=== PATIENT | female | born 1975 | race Caucasian/White ===

== ENCOUNTER 2017-02-13 22:40 | Emergency (ER) | payer MEDICAID ==
[2017-02-13] MEDS ORDERED: Sucralfate 1 GM Tab ONE (23:08)
[2017-02-13] MEDS ORDERED: Sucralfate 1 GM Tab PO ONE (23:13)
[2017-02-13 23:36] VITALS: BP 127/79
--- NOTE | 2017-02-16 09:24 | ER ---
DATE SEEN: 02/13/2017 CHIEF COMPLAINT: Epigastric abdominal discomfort. HISTORY OF PRESENT ILLNESS: For the past several days, she has had increasing midepigastric abdominal discomfort. She has a history of asthma, no longer taking prednisone. She feels mild reflux. No history of ulcer disease. She felt clammy today. Has no medication change. No fever, no chills. No shortness of breath or cough. No chest pain or irregular heartbeat, back pain, arm pain, jaw pain, neck pain, flank pain, frequency, urgency, dysuria, diarrhea, constipation, blood in the stool, black tarry stools, or muscle aches or joint aches or pains. MEDICATIONS: Significant for: 1. Prednisone, no longer taking. 2. Omeprazole 40 mg at bedtime. 3. Mometasone/formoterol (Dulera) 200/5 mcg. 4. Fluoxetine for depression. 5. Prozac 20 mg b.i.d. 6. Albuterol/ipratropium-DuoNeb p.r.n. 7. Albuterol inhaler HFA 2 puffs p.r.n. OTHER DIAGNOSES: 1. Asthma. 2. GERD. 3. Overweight. ALLERGIES: Keflex, topiramate. SOCIAL HISTORY: The patient is a smoker, less than a pack a day. OTHER INFORMATION: She has multiple visits for which she has been seen here - in 2016 nine times, but only two times this year. Most of the time ED visits were for shortness of breath, chest discomfort, chest congestion, or acid reflux. At most recent visit, she had shortness of breath in June 2016. FAMILY HISTORY: Her of lung cancer in 2005. REVIEW OF SYSTEMS: Otherwise negative, except as noted above. She has issues regarding depression. PHYSICAL EXAMINATION: VITAL SIGNS: Not yet on the chart. CONSTITUTIONAL: Alert woman who is in mild distress. PERRLA intact. Pharynx without abnormality. NECK: Supple. She is slightly overweight. NECK: Without thyromegaly or masses. No bruits. LUNGS: Clear without rales, rhonchi, or wheezes. HEART: S1, S2. No murmur. Regular rate and rhythm. No S3, no S4. ABDOMEN: Soft. No guarding. No abdominal discomfort, except for mild midepigastric discomfort. Bowel sounds present. No distention. No heel tap rebound. No rebound. No guarding. EXTREMITIES: Without edema. Deep tendon reflexes normal in upper and lower extremities, slightly hypoactive. ASSESSMENT: Probable acid reflux. PLAN: Treat with Carafate one gm q.i.d. Follow up with doctor in a week. Sixty tablets prescribed. She was dispensed with her Carafate this evening. DIAGNOSES: 1. Acid reflux. 2. Gastritis. 3. Esophagitis, no previous history of EGD. 4. Overweight. 5. Anxiety. 6. Asthma. 7. Depression. /[id number] RUEL/JOSE ALFREDO
== END 2017-02-13 23:15 | disposition home or self-care (01) ==
LOC: FB.ED 22:40
DX: K21.0 Gastro-esophageal reflux disease with esophagitis (principal); K29.70 Gastritis, unspecified, without bleeding; E66.3 Overweight; F41.9 Anxiety disorder, unspecified; F32.9 Major depressive disorder, single episode, unspecified; J45.909 Unspecified asthma, uncomplicated; Z88.1 Allergy status to other antibiotic agents
CPT/HCPCS: 99283; A9270

== ENCOUNTER → 2017-03-31 | Day surgery (SDC) | payer MEDICAID ==
[~2017-03-31] MED LIST: Propofol 200 MG/20 ML SDV IV ONE; Sodium Chloride 0.9% 10 ML Syringe FLUSH PRN
[2017-03-31 12:34] VITALS: BP 128/83
--- NOTE | 2017-04-01 07:43 | OR ---
DATE OF OPERATION: 03/31/2017 SURGEON: Tj Scott MD PREOPERATIVE DIAGNOSIS: Cataract of left eye. POSTOPERATIVE DIAGNOSIS: Cataract of left eye. OPERATION PERFORMED: Phacoemulsification of cataract of left eye with placement of an Duggan, model ZCB00, 22.0 diopter, foldable, posterior chamber intraocular lens. MARINE OILER: None. DESCRIPTION OF PROCEDURE: Peribulbar anesthetic was performed using a mixture of 2% lidocaine with Wydase. The patient was prepped and draped in the usual fashion. A 3 mm fornix based conjunctival flap was performed at the 10 o'clock position. Hemostasis was obtained using diathermy, and a 2.8 mm grooved near clear corneal incision was then made. A stab incision was made into the anterior chamber at the 12 o'clock position and a second stab wound incision was made underlying the grooved near clear corneal incision. Viscoat was instilled into the anterior chamber, and a continuous tear capsulotomy was performed. Hydrodissection was accomplished with balanced salt solution, and the nucleus was removed in a divide and conquer fashion. The remaining cortical material was removed with the irrigation and aspiration unit. Viscoat was instilled into the anterior chamber, and an KRISTY, model ZCB00, 22.0 diopter, foldable, posterior chamber intraocular lens was placed into the capsular bag, the haptics being positioned at the 1 and 7 o'clock positions. The residual Viscoat was removed from the anterior chamber and the anterior chamber reformed with balanced salt solution. The wound was checked and noted to be watertight. The conjunctiva was secured in its original position with diathermy. Alphagan and Maxitrol Ointment were then placed into the patient's eye. The patient tolerated the procedure well and it was without complication. Elapsed phacoemulsification time was 4.4 seconds. Postoperative instructions as related to activities, as well as medications, were reviewed with the patient. The patient was instructed to return to see me on the day following surgery for the first postoperative check. The patient was also instructed to contact me prior to that time if the patient were to have any problems. /[id number] DEG/MODL CC: ANILA MOLINA FNP MTDD
== END ==
LOC: FB.SDS 08:18
PROVIDERS: ATTEND Ophthalmology
DX: H26.9 Unspecified cataract (principal); R09.81 Nasal congestion; F17.210 Nicotine dependence, cigarettes, uncomplicated; J45.909 Unspecified asthma, uncomplicated; F33.0 Major depressive disorder, recurrent, mild; G47.61 Periodic limb movement disorder; F41.1 Generalized anxiety disorder; E05.00 Thyrotoxicosis with diffuse goiter without thyrotoxic crisis or storm; Z79.899 Other long term (current) drug therapy; Z79.51 Long term (current) use of inhaled steroids; Z88.1 Allergy status to other antibiotic agents; Z88.8 Allergy status to other drugs, medicaments and biological substances; Z98.890 Other specified postprocedural states
CPT/HCPCS: 66984; 81025; C1780; J2704; J7050

== ENCOUNTER 2017-06-02 08:44 | Day surgery (SDC) | payer MEDICAID ==
[2017-06-02] MEDS ORDERED: Sodium Chloride 0.9% 10 ML Syringe FLUSH PRN (11:30)
[2017-06-02] MEDS ORDERED: Propofol 200 MG/20 ML SDV IV ONE (11:30)
[2017-06-02 12:32] VITALS: BP 135/83
--- NOTE | 2017-06-03 10:18 | OR ---
DATE OF OPERATION: 06/02/2017 SURGEON: Tj Scott MD PREOPERATIVE DIAGNOSIS: Cataract right eye. POSTOPERATIVE DIAGNOSIS: Cataract right eye. OPERATION PERFORMED: Phacoemulsification of cataract right eye with placement of an Duggan, model ZCB00, 22.5 diopter, foldable, posterior chamber intraocular lens. NEMATOLOGIST: None. DESCRIPTION OF PROCEDURE: Peribulbar anesthetic was performed using a mixture of 2% lidocaine with Wydase. The patient was prepped and draped in the usual fashion. A 3 mm fornix based conjunctival flap was performed at the 10 o'clock position. Hemostasis was obtained using diathermy, and a 2.8 mm grooved near clear corneal incision was then made. A stab incision was made into the anterior chamber at the 12 o'clock position and a second stab wound incision was made underlying the grooved near clear corneal incision. Viscoat was instilled into the anterior chamber, and a continuous tear capsulotomy was performed. Hydrodissection was accomplished with balanced salt solution, and the nucleus was removed in a divide and conquer fashion. The remaining cortical material was removed with the irrigation and aspiration unit. Viscoat was instilled into the anterior chamber, and an Duggan, model ZCB00, 22.5 diopter, foldable, posterior chamber intraocular lens was placed into the capsular bag, the haptics being positioned at the 1 and 7 o'clock positions. The residual Viscoat was removed from the anterior chamber and the anterior chamber reformed with Miochol. The wound was checked and noted to be watertight. The conjunctiva was secured in its original position with diathermy. Alphagan and Maxitrol Ointment were then placed into the patient's eye. The patient tolerated the procedure well and it was without complication. Elapsed phacoemulsification time was 1.3 seconds. Postoperative instructions as related to activities as well as medications were reviewed with the patient. The patient was instructed to return to see me on the day following surgery for the first postoperative check. The patient was also instructed to contact me prior to that time if she were to have any problems. ADDENDUM: Because of minor patient discomfort, 0.2 mL of a mixture of lidocaine, phenylephrine, and balanced salt solution were instilled into the anterior chamber. This diminished the discomfort throughout the course of the surgery. /[id number] DEG/MODL CC: ANILA Asencio RNC, ANP
== END 2017-06-02 12:55 | disposition home or self-care (01) ==
LOC: FB.SDS 08:44
PROVIDERS: ATTEND Ophthalmology
DX: H26.9 Unspecified cataract (principal); J45.909 Unspecified asthma, uncomplicated; J32.9 Chronic sinusitis, unspecified; F33.9 Major depressive disorder, recurrent, unspecified; F41.9 Anxiety disorder, unspecified; F17.210 Nicotine dependence, cigarettes, uncomplicated; Z79.51 Long term (current) use of inhaled steroids; Z79.899 Other long term (current) drug therapy; Z88.1 Allergy status to other antibiotic agents; Z88.8 Allergy status to other drugs, medicaments and biological substances; Z91.048 Other nonmedicinal substance allergy status; Z98.42 Cataract extraction status, left eye
CPT/HCPCS: 81025; C1780; J2704; J7050

== ENCOUNTER 2018-05-09 22:41 | Inpatient (IN) | payer MEDICAID ==
[2018-05-09] MEDS ORDERED: Albuterol/Ipratropium 3.0-0.5 MG/3 ML Neb Soln NEB ONE (22:49)
[2018-05-09] MEDS ORDERED: methylPREDNISolone Sodium Succinate 125 MG/2 ML SDV IVPUSH ONE (22:49)
--- NOTE | 2018-05-09 22:56 | EDM.PDOC ---
ED HPI GENERAL MEDICAL PROBLEM - General Stated Complaint: DIFFICULTY BREATHING Time Seen by Provider: 05/09/18 22:41 Source of Information: Reports: Patient, EMS History Limitations: Reports: Respiratory Distress - History of Present Illness INITIAL COMMENTS - FREE TEXT/NARRATIVE: 43 y.o w f -smoker- came to the ED by EMS due to SOB at home. Pt was seen yesterday by for Astmo exacerbation. She received a duo neb and prednison, improved and was d/c'd with instructions. This PM she called 911 because of SOB. BP 108/57 RR 22 Pulse ox 88% on RA Pulse 127 Temp 37.2 Onset Date: 05/07/18 Onset Time: 19:00 Duration: Getting Worse, Intermittent Location: Reports: Chest Severity: Moderate Improves with: Reports: Medication Worsens with: Reports: Movement Context: Reports: Sick Contact, Other (COPD) Associated Symptoms: Reports: Cough, Shortness of Breath Treatments CUFFER: Reports: Other Medication(s) (albuterol nebs) - Related Data Allergies Allergy/AdvReac Type Severity Reaction Status Date / Time cephalexin monohydrate Allergy Rash Verified 05/08/18 18:10 [From Keflex] pramipexole Allergy Itching Verified 05/08/18 18:10 topiramate [From Topamax] Allergy Rash Verified 05/08/18 18:10 Home Meds: Home Meds FLUoxetine [PROzac] 20 mg PO BID 09/16/15 [History] Albuterol Sulfate [Proventil Hfa] 2 puff IH Q4H 03/30/17 [History] Gabapentin [Neurontin] 300 mg PO BEDTIME 03/30/17 [History] Mometasone/Formoterol [Dulera 200-5 MCG] 2 puff IH BID 03/30/17 [History] Ipratropium/Albuterol Sulfate [Iprat-Albut 0.5-3(2.5) mg/3 ml] 3 ml IH QID PRN 04/17/17 [History] Gabapentin [Neurontin] 300 mg PO PCDINNER 06/01/17 [History] predniSONE 20 mg PO DAILY #4 tab 05/08/18 [Rx] Past Medical History - Past Health History Medical/Surgical History: Denies Medical/Surgical History HEENT History: Reports: Cataract, Impaired Vision, Sinusitis Cardiovascular History: Reports: None Respiratory History: Reports: Asthma, Bronchitis, Recurrent, Pneumonia, Recurrent, SOB Gastrointestinal History: Reports: GERD Genitourinary History: Reports: UTI, Recurrent 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 HAS HAD SOME BLOOD WORK DONE FOR THIS. Hematologic History: Reports: None Immunologic History: Reports: None Oncologic (Cancer) History: Reports: None Dermatologic History: Reports: Other (See Below) Other Dermatologic History: HAS GOT RASHES FROM SOME MEDS IN THE PAST. - Infectious Disease History Infectious Disease History: Reports: Chicken Pox, Shingles - Past Surgical History Head Surgeries/Procedures: Reports: None Social & Family History - Family History Family Medical History: Noncontributory Cardiac: Reports: Stent Respiratory: Reports: Asthma Musculoskeletal: Reports: Other (See Below) Other Musculoskeletal Family History: multiple sclerosis Endocrine/Metabolic: Reports: Diabetes, Type I Oncologic: Reports: Pancreatic - Caffeine Use Caffeine Use: Reports: Coffee Other Caffeine Use: 4 CANS A DAY. ED ROS GENERAL - Review of Systems Review Of Systems: See Below Constitutional: Reports: No Symptoms HEENT: Reports: No Symptoms Respiratory: Reports: Shortness of Breath, Wheezing, Cough Cardiovascular: Reports: No Symptoms Endocrine: Reports: No Symptoms GI/Abdominal: Reports: No Symptoms : Reports: No Symptoms Musculoskeletal: Reports: No Symptoms Skin: Reports: No Symptoms Neurological: Reports: No Symptoms Psychiatric: Reports: No Symptoms Hematologic/Lymphatic: Reports: No Symptoms Immunologic: Reports: No Symptoms ED EXAM, GENERAL - Physical Exam Exam: See Below Exam Limited By: Respiratory Distress General Appearance: Alert, WD/WN, Moderate Distress Eye Exam: Bilateral Eye: Normal Inspection Ears: Normal External Exam Ear Exam: Bilateral Ear: Auricle Normal Nose: Normal Inspection, Normal Mucosa, No Blood Throat/Mouth: Normal Inspection, Normal Lips, Normal Voice, No Airway Compromise Head: Atraumatic, Normocephalic Neck: Normal Inspection, Supple, Non-Tender, Full Range of Motion Respiratory/Chest: Respiratory Distress, Decreased Breath Sounds, Rhonchi, Wheezing Cardiovascular: No Edema, Tachycardia Peripheral Pulses: 2+: Radial (L) GI/Abdominal: Normal Bowel Sounds, Soft, Non-Tender, No Organomegaly, No Abnormal Bruit, No Mass, Pelvis Stable (Female) Exam: Deferred Rectal (Female) Exam: Deferred Back Exam: Normal Inspection, Full Range of Motion Extremities: Normal Inspection, Normal Range of Motion, Non-Tender, No Pedal Edema, Normal Capillary Refill Neurological: Alert, Oriented, CN II-XII Intact, Normal Cognition, No Motor/ Sensory Deficits Psychiatric: Normal Affect, Normal Mood Skin Exam: Warm, Dry, Intact, Normal Color, No Rash Lymphatic: No Adenopathy EKG INTERPRETATION EKG Date: 05/10/18 Time: 00:45 Rhythm: NSR Rate (Beats/Min): 114 (after a duo neb) Archer: Normal P-Wave: Present QRS: Normal ST-T: Normal QT: Normal Comparison: NA - No Prior EKG Course - Vital Signs Text/Narrative:: 43 y.o w f -smoker- came to the ED by EMS due to SOB at home. Pt was seen yesterday by for Astmo exacerbation. She received a duo neb and prednison, improved and was d/c'd with instructions. This PM she called 911 because of SOB. BP 108/57 RR 22 Pulse ox 88% on RA Pulse 127 Temp 37.2 PE: WN WD W F in resp distress Imaging: Infiltrate Left upper lobe, left lower lobe, official report is pending. Labs: WBC 18k reminder of CBC nl Na 132 GFR > 60 Lactic acid 1.4 BUN 8 Cr 1.0 Troponin 0.017 Impression: Asthma exacerbation, Infiltrate ITZ of lung DDx Mass/CA vs Pneumonia Tx: Duo Neb, SoluMedrol, Levoquin Reexam: Somewhat improved Plan: Admit to m/s inpatient tele Last Recorded V/S: Last Vital Signs Temp 36.5 C 05/10/18 04:20 Pulse 96 05/10/18 08:40 Resp 22 H 05/10/18 04:20 BP 122/76 05/10/18 04:20 Pulse Ox 91 L 05/10/18 08:37 - Orders/Labs/Meds Orders: Active Orders 24 hr Category Date Time Status Chest 2V [CR] Stat Exams 05/09/18 22:49 Taken Blood Culture x2 Reflex Set [OM.PC] Urgent Oth 05/09/18 23:55 Ordered EKG 12 Lead [EK] Routine Ther 05/09/18 22:50 Ordered Medication Orders Acetaminophen (Tylenol) 650 mg PO Q4H PRN PRN Reason: Pain (Mild 1-3)/fever Albuterol (Proventil Neb Soln) 2.5 mg NEB Q2H PRN PRN Reason: Shortness Of Breath/wheezing Last Admin: 05/10/18 08:37 Dose: 2.5 mg Admin: 05/10/18 06:05 Dose: 2.5 mg Admin: 05/10/18 03:03 Dose: 2.5 mg Azithromycin (Zithromax) 250 mg PO DAILY [facility] Ampicillin Sodium/Sulbactam (Sodium 1.5 gm/ Sodium Chloride) 50 mls @ 150 mls/ hr IV Q6H JOHN Methylprednisolone Sodium Succinate (Solu-Medrol) 125 mg IVPUSH Q8H JOHN Last Admin: 05/10/18 06:05 Dose: 125 mg Ondansetron HCl (Zofran Odt) 4 mg PO Q4H PRN PRN Reason: nausea, able to take PO Sodium Chloride (Saline Flush) 10 ml FLUSH ASDIRECTED PRN PRN Reason: Keep Vein Open Last Admin: 05/10/18 06:05 Dose: 10 ml Labs: Laboratory Tests 05/09/18 05/09/18 05/09/18 Range/Units 23:06 23:06 23:06 WBC 18.1 H (4.5-12.0) X10-3/uL RBC 5.20 (3.23-5.20) x10(6)uL Hgb 15.5 (11.5-15.5) g/dL Hct 46.3 (30.0-51.3) % MCV 88.9 (80-96) fL MCH 29.8 (27.7-33.6) pg MCHC 33.6 (32.2-35.4) g/dL RDW 12.6 (11.5-15.5) % Plt Count 327 (125-369) X10(3)uL MPV 7.5 (7.4-10.4) fL Add Manual Diff Yes Neutrophils % (Manual) 80 (46-82) % Band Neutrophils % 5 (0-6) % Lymphocytes % (Manual) 10 L (13-37) % Monocytes % (Manual) 5 (4-12) % Sodium 132 L (135-145) mmol/L Potassium 3.7 (3.5-5.3) mmol/L Chloride 96 L D (100-110) mmol/L Carbon Dioxide 24 (21-32) mmol/L BUN 8 (7-18) mg/dL Creatinine 1.0 (0.55-1.02) mg/dL Est Cr Clr Drug Dosing TNP Estimated GFR (MDRD) > 60 (>60) BUN/Creatinine Ratio 8.0 L (9-20) Glucose 127 H (80-116) mg/dL Lactic Acid 1.4 (0.4-2.2) mmol/L Calcium 9.0 (8.6-10.2) mg/dL Troponin I (<0.017-0.056) ng/mL Urine Color (YELLOW) Urine Appearance (CLEAR) Urine pH (5.0-6.5) Ur Specific Tucker (1.010-1.025) Urine Protein (NEGATIVE) mg/dL Urine Glucose (UA) (NEGATIVE) mg/dL Urine Ketones (NEGATIVE) mg/dL Urine Occult Blood (NEGATIVE) Urine Nitrite (NEGATIVE) Urine Bilirubin (NEGATIVE) Urine Urobilinogen (NEGATIVE) mg/dL Ur Leukocyte Esterase (NEGATIVE) Urine RBC (0) Urine WBC (0) Ur Squamous Epith Cells (NS,R,O) Urine Bacteria (NS) 05/09/18 05/10/18 Range/Units 23:06 00:13 WBC (4.5-12.0) X10-3/uL RBC (3.23-5.20) x10(6)uL Hgb (11.5-15.5) g/dL Hct (30.0-51.3) % MCV (80-96) fL MCH (27.7-33.6) pg MCHC (32.2-35.4) g/dL RDW (11.5-15.5) % Plt Count (125-369) X10(3)uL MPV (7.4-10.4) fL Add Manual Diff Neutrophils % (Manual) (46-82) % Band Neutrophils % (0-6) % Lymphocytes % (Manual) (13-37) % Monocytes % (Manual) (4-12) % Sodium (135-145) mmol/L Potassium (3.5-5.3) mmol/L Chloride (100-110) mmol/L Carbon Dioxide (21-32) mmol/L BUN (7-18) mg/dL Creatinine (0.55-1.02) mg/dL Est Cr Clr Drug Dosing Estimated GFR (MDRD) (>60) BUN/Creatinine Ratio (9-20) Glucose (80-116) mg/dL Lactic Acid (0.4-2.2) mmol/L Calcium (8.6-10.2) mg/dL Troponin I < 0.017 L (<0.017-0.056) ng/mL Urine Color Yellow (YELLOW) Urine Appearance Slightly cloudy (CLEAR) Urine pH 6.0 (5.0-6.5) Ur Specific Tucker 1.020 (1.010-1.025) Urine Protein Negative (NEGATIVE) mg/dL Urine Glucose (UA) Normal (NEGATIVE) mg/dL Urine Ketones 15 H (NEGATIVE) mg/dL Urine Occult Blood Trace (NEGATIVE) Urine Nitrite Negative (NEGATIVE) Urine Bilirubin Negative (NEGATIVE) Urine Urobilinogen Normal (NEGATIVE) mg/dL Ur Leukocyte Esterase Negative (NEGATIVE) Urine RBC 0-5 (0) Urine WBC 0-5 (0) Ur Squamous Epith Cells Few H (NS,R,O) Urine Bacteria Few H (NS) Meds: Medications Generic Name Dose Route Start Last Admin Trade Name Freq PRN Reason Stop Dose Admin Acetaminophen 650 mg 05/10/18 00:20 Tylenol PO Q4H PRN Pain (Mild 1-3)/fever Albuterol 2.5 mg 05/10/18 00:20 05/10/18 08:37 Proventil Neb Soln NEB 2.5 mg Q2H PRN Administration Shortness Of Breath/wheezing Azithromycin 250 mg 05/11/18 09:00 Zithromax PO DAILY [facility] Ampicillin Sodium/Sulbactam 50 mls @ 150 mls/hr 05/10/18 08:00 Sodium 1.5 gm/ Sodium Chloride IV Q6H JOHN Methylprednisolone Sodium Succinate 125 mg 05/10/18 07:00 05/10/18 06:05 Solu-Medrol IVPUSH 125 mg Q8H JOHN Administration Ondansetron HCl 4 mg 05/10/18 00:20 Zofran Odt PO Q4H PRN nausea, able to take PO Sodium Chloride 10 ml 05/10/18 00:20 05/10/18 06:05 Saline Flush FLUSH 10 ml ASDIRECTED PRN Administration Keep Vein Open Discontinued Medications Generic Name Dose Route Start Last Admin Trade Name Quynh PRN Reason Stop Dose Admin Albuterol/Ipratropium 3 ml 05/09/18 22:49 05/09/18 23:00 Duoneb 3.0-0.5 Mg/3 Ml NEB 05/09/18 22:50 3 ml ONETIME ONE Administration Azithromycin 1,000 mg 05/10/18 07:42 Zithromax PO 05/10/18 07:43 ONETIME ONE Azithromycin 500 mg 05/10/18 07:43 Zithromax PO 05/10/18 07:44 ONETIME ONE Ampicillin Sodium/Sulbactam 50 mls @ 150 mls/hr 05/10/18 08:00 Sodium 1.5 gm/ Sodium Chloride IV Q8H [facility] Levofloxacin 500 mg 05/10/18 00:19 05/10/18 00:32 Levaquin PO 05/10/18 00:20 500 mg ONETIME ONE Administration Methylprednisolone Sodium Succinate 125 mg 05/09/18 22:49 05/09/18 23:00 Solu-Medrol IVPUSH 05/09/18 22:50 125 mg ONETIME ONE Administration Methylprednisolone Sodium Succinate 125 mg 05/10/18 00:45 Solu-Medrol IVPUSH Q8H JOHN Departure - Departure Time of Disposition: 17:00 Disposition: Admitted As Inpatient 66 Condition: Fair Clinical Impression: Pneumonia, Asthma - Discharge Information - My Orders Last 24 Hours: My Active Orders 05/09/18 22:49 Chest 2V [CR] Stat 05/09/18 22:50 EKG 12 Lead [EK] Routine 05/09/18 23:55 Blood Culture x2 Reflex Set [OM.PC] Urgent - Assessment/Plan Last 24 Hours: My Active Orders 05/09/18 22:49 Chest 2V [CR] Stat 05/09/18 22:50 EKG 12 Lead [EK] Routine 05/09/18 23:55 Blood Culture x2 Reflex Set [OM.PC] Urgent
[2018-05-10] MEDS ORDERED: Levofloxacin 500 MG Tab PO ONE (00:19)
[2018-05-10] MEDS ORDERED: Ondansetron 4 MG Tab.DIS PO PRN (00:20)
[2018-05-10] MEDS ORDERED: Acetaminophen 325 MG Tab PO PRN (00:20)
[2018-05-10] MEDS ORDERED: methylPREDNISolone Sodium Succinate 125 MG/2 ML SDV IVPUSH SCH (00:45)
[2018-05-10] MEDS: Albuterol 0.083% 2.5 MG/3 ML Neb Soln NEB PRN ×7 (03:03→22:20)
[2018-05-10] MEDS: methylPREDNISolone Sodium Succinate 125 MG/2 ML SDV IVPUSH SCH ×3 (06:05→23:22)
[2018-05-10] MEDS: Sodium Chloride 0.9% 10 ML Syringe FLUSH PRN ×6 (06:05→23:21)
[2018-05-10] MEDS ORDERED: Azithromycin 250 MG Tab PO ONE (07:42)
[2018-05-10] MEDS ORDERED: Azithromycin 500 MG Tab PO ONE (07:43)
[2018-05-10] MEDS ORDERED: Ampicillin/Sulbactam Na 1.5 GM in Sodium Chloride 0.9% 50 ML IV SCH ×4 (08:00)
[2018-05-10] MEDS ORDERED: Iopamidol 755 Mg/ML 75 ML Bottle IV ONE (09:01)
--- NOTE | 2018-05-10 10:14 | HP ---
ADMISSION DATE: 05/10/2018 History is from the patient. The patient is judged to be a fair historian. CHIEF COMPLAINT: Shortness of breath. HISTORY OF PRESENT ILLNESS: Ms. Patino is a 43-year-old woman from [place], [place], with a longstanding history of asthma and cigarette smoking. She presented to the emergency room for her exacerbation of asthma on the day before admission. She was treated, sent home, and followup phone call the next morning indicated she was stable. However, last evening or during the night she got much more short of breath. Her nebulizer treatment at home was not working, so she called the ambulance and presented to the ER. She was found to have a left upper lobe infiltrate and is admitted to the hospital. The patient has received nebulizer treatments overnight and states she feels slightly better this morning. Teresa states she developed cold symptoms approximately a week ago. Two days after that, she had fever and chills. She has not had any chest pain, but she is coughing up a small amount of yellowish phlegm. She normally uses Dulera and nebulizer treatments with DuoNeb for asthma and she states that she has been admitted in the past for asthma exacerbation, but none within the last year. PAST MEDICAL HISTORY: Longstanding asthma as mentioned. She also has restless legs syndrome, chronic allergic rhinitis, and depression. She is status post bilateral cataract surgeries, nasal septoplasty. No other surgeries or major medical problems. She has been reported as having a history of goiter. TSH done in November last year was 1.61. MEDICATIONS: 1. Prednisone 20 mg daily. 2. Dulera 2 puffs b.i.d. 3. DuoNeb q.i.d. p.r.n. 4. Gabapentin 300 mg b.i.d. 5. Fluoxetine 20 mg b.i.d. 6. Proventil HFA p.r.n. ALLERGIES: Cephalexin, Mirapex, and Topamax, all reported as to causing rash or itching. HABITS: One-half to one pack per day cigarette smoker. No alcohol. Two servings of caffeinated beverage per day. FAMILY AND SOCIAL HISTORY: The patient's father had an PR at age 58, but is currently stable. Mother at the age 53 of cancer of the pancreas. She has 2 brothers, one with MS and one with diabetes. The patient is single. She lives in [place] and is not currently employed. REVIEW OF SYSTEMS: GENERAL: No seizure, syncope, or recent significant weight change. SKIN: Negative for rash. HEENT: No recent changes in hearing or vision. No current sore throat. She does have a mild cough, dyspnea, wheezing, and a symptomatic asthma flare. No chest pain or palpitations. No abdominal pain or nausea. She occasionally gets heartburn and takes Tums for it. No diarrhea. No hematochezia or melena. No hematuria or UTI symptoms. No joint inflammation, swelling, or skin rash. PHYSICAL EXAMINATION: GENERAL: She is alert, comfortable, and a fair historian. VITAL SIGNS: Blood pressure 122/76, pulse 102 and regular, respirations 22, O2 saturation 91% on 3 L nasal cannula, temperature 97.7, weight 178 pounds 14 ounces. SKIN: Anicteric. Warm and dry without rash. HEENT: Shows clear TMs. Pupils are equal and reactive. Oropharynx is clear. NECK: Supple. Thyroid feels normal. LUNGS: Expiratory wheeze bilaterally and persistent rales in the left [id number] lung field. HEART: Regular without murmur, rub, or gallop. ABDOMEN: Normal bowel sounds. Obese, soft, nontender. No masses, no organomegaly. BREASTS, PELVIC, AND RECTAL: Not done. EXTREMITIES: Warm and well perfused. Excellent pulses. No edema. NEUROLOGIC: Reveals symmetric motor exam. LABORATORY DATA: White count 18,100, hemoglobin 15.5, 80 segs, 5 bands, 10 lymphs, 5 monos. Sodium 132, potassium 3.7, BUN 8, creatinine 1.0, glucose 127. Troponin less than 0.17. Urinalysis is normal. Chest x-ray shows left upper lobe infiltrate. ASSESSMENT: 1. Left upper lobe pneumonia. 2. Asthma with exacerbation. 3. Chronic restless legs syndrome. 4. Depression. 5. Chronic allergic rhinitis. PLAN: Teresa has had blood cultures drawn and has been given 1 dose of Levaquin in the ER by Dr. Siddiqi. I will start her on IV Unasyn and oral azithromycin. Continue her respiratory therapy treatments. Anticipate approximately 48 to 72 hour hospitalization with return to home upon discharge. /[id number] JODIE/JOSE ALFREDO
[2018-05-10] MEDS: Ampicillin/Sulbactam Na 1.5 GM in Sodium Chloride 0.9% 50 ML IV SCH ×3 (10:38→22:13)
[2018-05-11] MEDS: Ampicillin/Sulbactam Na 1.5 GM in Sodium Chloride 0.9% 50 ML IV SCH ×4 (04:16→22:27)
[2018-05-11] MEDS: Sodium Chloride 0.9% 10 ML Syringe FLUSH PRN ×4 (04:18→22:29)
[2018-05-11] MEDS: methylPREDNISolone Sodium Succinate 125 MG/2 ML SDV IVPUSH SCH (07:02)
[2018-05-11] MEDS: Albuterol 0.083% 2.5 MG/3 ML Neb Soln NEB PRN ×5 (07:38→20:23)
[2018-05-11] MEDS: Azithromycin 250 MG Tab PO SCH (08:38)
[2018-05-11] MEDS: Formoterol/Mometasone 200-5 MCG 8.8 GM Inhaler IH SCH ×2 (10:50→20:07)
--- NOTE | 2018-05-11 11:35 | PN ---
DATE SEEN: 05/11/2018 HISTORY: Teresa is a 43-year-old woman with a history of underlying asthma and depression. She was admitted from the ER because of increasing shortness of breath. X-ray revealed a left upper lobe infiltrate and exam showed dyspnea and significant wheezing. She has been on IV antibiotics and nebulizer treatments. She is improving and states that she was even better today. She did cough a small amount of yellow- green phlegm up in the shower this morning. PHYSICAL EXAMINATION: GENERAL: She is alert and comfortable. HEENT: Show mouth to be dry. LUNGS: Expiratory wheezes bilaterally and faint rales in the left mid lung field. HEART: Regular without murmur or gallop. ABDOMEN: Obese, soft, and nontender. EXTREMITIES: Show no edema. ASSESSMENT: 1. Left upper lobe pneumonia. 2. Reactive airways disease. 3. Depression. PLAN: We will convert her from IV to oral steroid. Continue her IV Unasyn and oral azithromycin. Anticipate discharge tomorrow if she continues to improve. /[id number] JODIE/JOSE ALFREDO
[2018-05-11] MEDS ORDERED: predniSONE 20 MG Tab PO ONE (14:00)
[2018-05-11] MEDS ORDERED: Nicotine Polacrilex 2 MG Gum CHEW PRN (19:09)
[2018-05-11] MEDS: FLUoxetine 20 MG Cap PO SCH (20:05)
[2018-05-12] MEDS: Ampicillin/Sulbactam Na 1.5 GM in Sodium Chloride 0.9% 50 ML IV SCH (04:04)
[2018-05-12] MEDS: Sodium Chloride 0.9% 10 ML Syringe FLUSH PRN (04:06)
[2018-05-12] MEDS: Albuterol 0.083% 2.5 MG/3 ML Neb Soln NEB PRN ×4 (07:10→23:31)
[2018-05-12] MEDS: Formoterol/Mometasone 200-5 MCG 8.8 GM Inhaler IH SCH ×2 (08:37→20:05)
[2018-05-12] MEDS: Azithromycin 250 MG Tab PO SCH (08:38)
[2018-05-12] MEDS: predniSONE 20 MG Tab PO SCH (08:38)
[2018-05-12] MEDS: Levofloxacin/Dextrose 5%-Water 500 MG in Premix Bag 1 BAG IV SCH (08:38)
[2018-05-12] MEDS: FLUoxetine 20 MG Cap PO SCH ×2 (08:38→20:06)
--- NOTE | 2018-05-12 11:35 | PN ---
DATE SEEN: 05/12/2018 HISTORY: Teresa is a 43-year-old woman from [place], [place] with a history of asthma, who was admitted with respiratory difficulty and pneumonia. She has been on IV Unasyn and oral azithromycin. She has been afebrile since her temp of 99.4 max on the day after admission. She still has significant wheezing and coughing. She denies chest pain, palpitations, and her appetite is good. PHYSICAL EXAMINATION: GENERAL: She is alert, comfortable. VITAL SIGNS: Blood pressure 126/83, pulse 88 and regular, respirations 18, O2 saturation 98% on 1 L nasal cannula oxygen, temp 97.4. SKIN: Anicteric. Warm and dry. MOUTH: Dry. LUNGS: Expiratory wheezes widespread throughout both lungs. No focal consolidation is heard. HEART: Regular without murmur or gallop. ABDOMEN: Normal bowel sounds. Soft and nontender. EXTREMITIES: Show no edema. ASSESSMENT: Bilateral perihilar pneumonia, question atypical. PLAN: At this time, we will continue her respiratory treatments. Continue her oral azithromycin. I will switch her from Unasyn to Levaquin. Anticipate discharge tomorrow. /[id number] JODIE/JOSE ALFREDO
[2018-05-13] MEDS: Levofloxacin/Dextrose 5%-Water 500 MG in Premix Bag 1 BAG IV SCH (08:39)
[2018-05-13] MEDS: Azithromycin 250 MG Tab PO SCH (08:40)
[2018-05-13] MEDS: FLUoxetine 20 MG Cap PO SCH (08:41)
[2018-05-13] MEDS: Formoterol/Mometasone 200-5 MCG 8.8 GM Inhaler IH SCH (08:41)
[2018-05-13] MEDS: predniSONE 20 MG Tab PO SCH (08:41)
[2018-05-13] MEDS ORDERED: Sodium Chloride 0.9% 10 ML Syringe FLUSH PRN (09:39)
[2018-05-13 10:47] VITALS: BP 108/72
--- NOTE | 2018-05-13 12:13 | DISCH ---
DISCHARGE DATE: 05/13/2018 PRIMARY FINAL DIAGNOSIS: Bilateral perihilar pneumonia. OTHER DIAGNOSES: 1. Acute on chronic asthma with exacerbation. 2. Chronic depression. 3. Mild hyponatremia. 4. Mild hyperglycemia. OPERATIONS: None. COMPLICATIONS: None. SUMMARY: Teresa is a 43-year-old woman from [place] with a history of asthma. She was seen in the emergency room 1 day prior to her admission and treated for an asthma exacerbation. She came back on the day of admission severely short of breath, and she was found to have pneumonia and admitted to Acute Care. She was treated with IV Levaquin, vigorous respiratory treatments, and oral azithromycin. By 05/13/2018, she was significantly improved. She still had faint wheezes, but was breathing easily off oxygen. She was given nicotine gum for her smoking and her fluoxetine was continued. She is discharged to home in good condition to continue medications as follows: 1. DuoNeb q.i.d. p.r.n. 2. Albuterol HFA q.i.d. p.r.n. 3. Prednisone 20 mg p.o. daily. 4. Dulera inhaler two puffs b.i.d. 5. Fluoxetine 20 mg p.o. b.i.d. 6. Azithromycin 250 mg daily x5 days. She is asked to see Dr. Yates and follow up within 2 weeks with plans at that time for tapering the prednisone. She is to follow up sooner on a p.r.n. basis. /[id number] JODIE/JOSE ALFREDO
== END 2018-05-13 09:50 | disposition home or self-care (01) | DRG 194 ==
LOC: FB.ED 22:41 → FB.MS 05-10 00:20
PROVIDERS: ADMIT Emergency Medicine; ATTEND Family Medicine
DX: J18.1 Lobar pneumonia, unspecified organism (principal); J45.901 Unspecified asthma with (acute) exacerbation; E87.1 Hypo-osmolality and hyponatremia; F32.9 Major depressive disorder, single episode, unspecified; R73.9 Hyperglycemia, unspecified; F17.210 Nicotine dependence, cigarettes, uncomplicated; G25.81 Restless legs syndrome; H54.7 Unspecified visual loss; K21.9 Gastro-esophageal reflux disease without esophagitis; F41.9 Anxiety disorder, unspecified; Z87.440 Personal history of urinary (tract) infections; Z87.01 Personal history of pneumonia (recurrent); Z79.899 Other long term (current) drug therapy; Z88.1 Allergy status to other antibiotic agents
CPT/HCPCS: 36415; 71046; 71260; 80048; 81001; 83605; 84484; 85025; 87040; 93005; 94150; 94640; 96374; 99285; A9270-GY; J0295; J1956; J2930; J7050; J7620-GY; Q9967

== ENCOUNTER 2018-08-14 22:11 | Emergency (ER) | payer MEDICAID ==
[2018-08-14] MEDS ORDERED: Doxycycline 100 MG Tab PO ONE (22:12)
--- NOTE | 2018-08-14 22:21 | EDM.PDOC ---
ED HPI GENERAL MEDICAL PROBLEM - General Stated Complaint: SINUS INFECTION Time Seen by Provider: 08/14/18 22:18 Source of Information: Reports: Patient History Limitations: Reports: No Limitations - History of Present Illness INITIAL COMMENTS - FREE TEXT/NARRATIVE: 43 yo female with sinus congestion,pounding headache for 4 days.Associated with Postnasal drainage,cough,and tightness. has COPD that is stable., No fever or sore throat. - Related Data Allergies Allergy/AdvReac Type Severity Reaction Status Date / Time cephalexin monohydrate Allergy Rash Verified 08/15/18 00:08 [From Keflex] pramipexole Allergy Itching Verified 08/15/18 00:08 topiramate [From Topamax] Allergy Rash Verified 08/15/18 00:08 Home Meds: Home Meds FLUoxetine [PROzac] 20 mg PO BID 09/16/15 [History] Albuterol Sulfate [Proventil Hfa] 2 puff IH Q4H PRN 03/30/17 [History] Mometasone/Formoterol [Dulera 200-5 MCG] 2 puff IH BID 03/30/17 [History] Ipratropium/Albuterol Sulfate [Iprat-Albut 0.5-3(2.5) mg/3 ml] 3 ml IH QID PRN 04/17/17 [History] Acetaminophen [Tylenol] 650 mg PO Q4H PRN tablet 05/13/18 [Rx] Past Medical History - Past Health History Medical/Surgical History: Denies Medical/Surgical History HEENT History: Reports: Cataract, Impaired Vision, Sinusitis Cardiovascular History: Reports: None Respiratory History: Reports: Asthma, Bronchitis, Recurrent, Pneumonia, Recurrent, SOB Gastrointestinal History: Reports: GERD Genitourinary History: Reports: UTI, Recurrent 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 HAS HAD SOME BLOOD WORK DONE FOR THIS. Hematologic History: Reports: None Immunologic History: Reports: None Oncologic (Cancer) History: Reports: None Dermatologic History: Reports: Other (See Below) Other Dermatologic History: HAS GOT RASHES FROM SOME MEDS IN THE PAST. - Infectious Disease History Infectious Disease History: Reports: Chicken Pox, Shingles - Past Surgical History Head Surgeries/Procedures: Reports: None Social & Family History - Family History Family Medical History: Noncontributory Cardiac: Reports: Stent Respiratory: Reports: Asthma Musculoskeletal: Reports: Other (See Below) Other Musculoskeletal Family History: multiple sclerosis Endocrine/Metabolic: Reports: Diabetes, Type I Oncologic: Reports: Pancreatic - Caffeine Use Caffeine Use: Reports: Coffee Other Caffeine Use: 4 CANS A DAY. ED ROS ENT - Review of Systems Review Of Systems: ROS reveals no pertinent complaints other than HPI. ED EXAM, ENT - Physical Exam Exam: See Below Exam Limited By: No Limitations General Appearance: Alert Ears: Normal External Exam Nose: Normal Inspection Mouth/Throat: Normal Inspection Head: Normocephalic Neck: Normal Inspection Respiratory/Chest: No Respiratory Distress, Lungs Clear Cardiovascular: Normal Peripheral Pulses Course - Vital Signs Last Recorded V/S: Last Vital Signs Temp 97.6 F 08/14/18 22:20 Pulse 98 08/14/18 22:20 Resp 18 08/14/18 22:20 BP 117/71 08/14/18 22:20 Pulse Ox 92 L 08/14/18 22:20 Departure - Departure Time of Disposition: 06:09 Disposition: Home, Self-Care 01 Clinical Impression: Rhinosinusitis - Discharge Information Instructions: Sinusitis, Adult, [id number], Doxycycline tablets or capsules Referrals: Ollie Martinez MD [Primary Care Provider] - Forms: ED Department Discharge - Problem List & Annotations (1) Rhinosinusitis SNOMED Code(s): 082658966, 83912343, 964879414 Code(s): J32.9 - CHRONIC SINUSITIS, UNSPECIFIED Status: Acute (2) Acute bronchitis SNOMED Code(s): 69262792 Code(s): J20.9 - ACUTE BRONCHITIS, UNSPECIFIED Status: Acute - Problem List Review Problem List Initiated/Reviewed/Updated: Yes - Assessment/Plan Plan: Doxy 100 mg po bid.
[2018-08-14 23:44] VITALS: BP 117/71
== END 2018-08-14 22:35 | disposition home or self-care (01) ==
LOC: FB.ED 22:11
DX: J32.9 Chronic sinusitis, unspecified (principal); J45.909 Unspecified asthma, uncomplicated; K21.9 Gastro-esophageal reflux disease without esophagitis; Z88.1 Allergy status to other antibiotic agents; Z79.899 Other long term (current) drug therapy
CPT/HCPCS: 99282; A9270-GY

== ENCOUNTER 2018-08-16 03:55 | Emergency (ER) | payer MEDICAID ==
[2018-08-16] MEDS ORDERED: Albuterol/Ipratropium 3.0-0.5 MG/3 ML Neb Soln NEB ONE (04:17)
[2018-08-16] MEDS ORDERED: Levofloxacin 500 MG Tab PO ONE (04:18)
[2018-08-16] MEDS ORDERED: methylPREDNISolone Sodium Succinate 125 MG/2 ML SDV IM ONE (04:59)
[2018-08-16] MEDS ORDERED: Albuterol 0.083% 2.5 MG/3 ML Neb Soln NEB ONE (05:00)
--- NOTE | 2018-08-16 05:01 | EDM.PDOC ---
ED HPI GENERAL MEDICAL PROBLEM - General Chief Complaint: Respiratory Problem Stated Complaint: TROUBLE BREATHING Time Seen by Provider: 08/16/18 03:55 Source of Information: Reports: Patient, EMS, Family History Limitations: Reports: Respiratory Distress - History of Present Illness INITIAL COMMENTS - FREE TEXT/NARRATIVE: 43 y.o.w.f came by EMS to the ed due to productive cough and SOB. No F/C. Pt is a smoker. No C/P no other acute med issues. BP 135/81 RR 20 Pulse ox 93% on RA Pulse 95 Temp 36.6 Onset Date: 08/13/18 Onset Time: 09:00 Duration: Day(s):, Getting Worse, Intermittent Location: Reports: Chest Quality: Reports: Same as Previous Episode Severity: Moderate Improves with: Reports: Medication Worsens with: Reports: None Context: Reports: Other (tobacco use, cough) Associated Symptoms: Reports: Shortness of Breath - Related Data Allergies Allergy/AdvReac Type Severity Reaction Status Date / Time cephalexin monohydrate Allergy Rash Verified 08/16/18 04:06 [From Keflex] pramipexole Allergy Itching Verified 08/16/18 04:06 topiramate [From Topamax] Allergy Rash Verified 08/16/18 04:06 Home Meds: Home Meds FLUoxetine [PROzac] 20 mg PO BID 09/16/15 [History] Albuterol Sulfate [Proventil Hfa] 2 puff IH Q4H PRN 03/30/17 [History] Mometasone/Formoterol [Dulera 200-5 MCG] 2 puff IH BID 03/30/17 [History] Ipratropium/Albuterol Sulfate [Iprat-Albut 0.5-3(2.5) mg/3 ml] 3 ml IH QID PRN 04/17/17 [History] Acetaminophen [Tylenol] 650 mg PO Q4H PRN tablet 05/13/18 [Rx] Albuterol Sulfate [Albuterol Sulfate Hfa] 18 gm IH Q4HR PRN #1 hfa.aer.ad [Rx] Levofloxacin 500 mg PO DAILY #10 tablet 08/16/18 [Rx] Past Medical History - Past Health History Medical/Surgical History: Denies Medical/Surgical History HEENT History: Reports: Cataract, Impaired Vision, Sinusitis Cardiovascular History: Reports: None Respiratory History: Reports: Asthma, Bronchitis, Recurrent, Pneumonia, Recurrent, SOB Gastrointestinal History: Reports: GERD Genitourinary History: Reports: UTI, Recurrent 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 HAS HAD SOME BLOOD WORK DONE FOR THIS. Hematologic History: Reports: None Immunologic History: Reports: None Oncologic (Cancer) History: Reports: None Dermatologic History: Reports: Other (See Below) Other Dermatologic History: HAS GOT RASHES FROM SOME MEDS IN THE PAST. - Infectious Disease History Infectious Disease History: Reports: Chicken Pox, Shingles - Past Surgical History Head Surgeries/Procedures: Reports: None Social & Family History - Family History Family Medical History: Noncontributory Cardiac: Reports: Stent Respiratory: Reports: Asthma Musculoskeletal: Reports: Other (See Below) Other Musculoskeletal Family History: multiple sclerosis Endocrine/Metabolic: Reports: Diabetes, Type I Oncologic: Reports: Pancreatic - Caffeine Use Caffeine Use: Reports: Coffee Other Caffeine Use: 4 CANS A DAY. ED ROS GENERAL - Review of Systems Review Of Systems: See Below Constitutional: Reports: No Symptoms HEENT: Reports: No Symptoms Respiratory: Reports: Shortness of Breath, Cough, Sputum Cardiovascular: Reports: No Symptoms Endocrine: Reports: No Symptoms GI/Abdominal: Reports: No Symptoms : Reports: No Symptoms Musculoskeletal: Reports: No Symptoms Skin: Reports: No Symptoms Neurological: Reports: No Symptoms Psychiatric: Reports: No Symptoms Hematologic/Lymphatic: Reports: No Symptoms Immunologic: Reports: No Symptoms ED EXAM, GENERAL - Physical Exam Exam: See Below Exam Limited By: Respiratory Distress General Appearance: Alert, WD/WN, Mild Distress, Moderate Distress Eye Exam: Bilateral Eye: Normal Inspection Ears: Normal External Exam Ear Exam: Bilateral Ear: Auricle Normal Nose: Normal Inspection Throat/Mouth: Normal Lips, Normal Voice, No Airway Compromise Head: Atraumatic, Normocephalic Neck: Normal Inspection, Supple Respiratory/Chest: Respiratory Distress, Rhonchi, Wheezing Cardiovascular: Normal Peripheral Pulses GI/Abdominal: Normal Bowel Sounds, Soft, Non-Tender, No Organomegaly, No Abnormal Bruit, Pelvis Stable (Female) Exam: Deferred Rectal (Female) Exam: Deferred Back Exam: Normal Inspection, Full Range of Motion Extremities: Normal Inspection, Normal Range of Motion, Non-Tender, No Pedal Edema Neurological: Alert, Oriented, CN II-XII Intact, Normal Cognition Psychiatric: Normal Affect, Normal Mood Skin Exam: Warm, Dry, Intact, Normal Color Lymphatic: No Adenopathy Course - Vital Signs Text/Narrative:: 43 y.o.w.f came by EMS to the ed due to productive cough and SOB. No F/C. Pt is a smoker. No C/P no other acute med issues. BP 135/81 RR 20 Pulse ox 93% on RA Pulse 95 Temp 36.6 PE: WNWD W F with sob and a prod cough Imaging: CXR: NAD official report is pending Impression: Acute bronchitis, Asthma Tx: Duoneb/Alb neb Solu medrol, Levaquin Reexam: Improved, pulsox was 94% , pt felt better Plan: D/C with instructions Last Recorded V/S: Last Vital Signs Temp 36.4 C 08/16/18 03:55 Pulse 98 08/16/18 03:55 Resp 20 08/16/18 03:55 BP 135/81 08/16/18 03:55 Pulse Ox 93 L 08/16/18 03:55 - Orders/Labs/Meds Orders: Active Orders 24 hr Category Date Time Status RT Aerosol Therapy [RC] ASDIRECTED Care 08/16/18 04:17 Active RT Aerosol Therapy [RC] ASDIRECTED Care 08/16/18 05:01 Active CXR [Chest 2V] [CR] Stat Exams 08/16/18 04:17 Taken Meds: Medications Discontinued Medications Generic Name Dose Route Start Last Admin Trade Name Freq PRN Reason Stop Dose Admin Albuterol 2.5 mg 08/16/18 05:00 08/16/18 05:15 Proventil Neb Soln NEB 08/16/18 05:01 2.5 mg ONETIME ONE Administration Albuterol/Ipratropium 3 ml 08/16/18 04:17 08/16/18 04:22 Duoneb 3.0-0.5 Mg/3 Ml NEB 08/16/18 04:18 3 ml ONETIME ONE Administration Levofloxacin 500 mg 08/16/18 04:18 08/16/18 04:22 Levaquin PO 08/16/18 04:19 500 mg ONETIME ONE Administration Methylprednisolone Sodium Succinate 125 mg 08/16/18 04:59 08/16/18 05:15 Solu-Medrol IM 08/16/18 05:00 125 mg ONETIME ONE Administration Departure - Departure Time of Disposition: 05:36 Disposition: Home, Self-Care 01 Condition: Good Clinical Impression: Asthma, Bronchitis - Discharge Information Prescriptions: Albuterol Sulfate [Albuterol Sulfate Hfa] 18 gm IH Q4HR PRN #1 hfa.aer.ad PRN Reason: for sob, cough Levofloxacin 500 mg PO DAILY #10 tablet Referrals: Ollie Martinez MD [Primary Care Provider] - Forms: ED Department Discharge Additional Instructions: Please quit tobacco use, please take the inhaler as recommended, please take the Abx as recommended, please f/u. Please come back if your symptoms get worse acutely - My Orders Last 24 Hours: My Active Orders 08/16/18 04:17 RT Aerosol Therapy [RC] ASDIRECTED CXR [Chest 2V] [CR] Stat 08/16/18 05:01 RT Aerosol Therapy [RC] ASDIRECTED - Assessment/Plan Last 24 Hours: My Active Orders 08/16/18 04:17 RT Aerosol Therapy [RC] ASDIRECTED CXR [Chest 2V] [CR] Stat 08/16/18 05:01 RT Aerosol Therapy [RC] ASDIRECTED
[2018-08-16 05:51] VITALS: BP 120/64
== END 2018-08-16 05:47 | disposition home or self-care (01) ==
LOC: FB.ED 03:55
DX: J20.9 Acute bronchitis, unspecified (principal); K21.9 Gastro-esophageal reflux disease without esophagitis; F41.9 Anxiety disorder, unspecified; F32.9 Major depressive disorder, single episode, unspecified; Z79.899 Other long term (current) drug therapy; Z88.1 Allergy status to other antibiotic agents; Z88.8 Allergy status to other drugs, medicaments and biological substances
CPT/HCPCS: 71046; 94640; 96372; 99284-25; A9270-GY; J2930; J7620-GY

== ENCOUNTER 2018-09-28 21:31 | Inpatient (IN) | payer MEDICAID ==
[2018-09-28] MEDS ORDERED: Albuterol/Ipratropium 3.0-0.5 MG/3 ML Neb Soln NEB ONE (21:50)
--- NOTE | 2018-09-28 21:56 | EDM.PDOC ---
ED HPI GENERAL MEDICAL PROBLEM - General Chief Complaint: Respiratory Problem Stated Complaint: SOB Time Seen by Provider: 09/28/18 21:52 Source of Information: Reports: Patient, EMS History Limitations: Reports: No Limitations - History of Present Illness INITIAL COMMENTS - FREE TEXT/NARRATIVE: Presents with productive cough x 3-4 days and shortness of breath. Has a h/o asthma and copd. Has had chills, but no fevers. Was seen by Dr. Martinez today , diagnosed with sinusitis and bronchitis, rx'd a Zpack and given a steroid injection. The patient continues to smoke cigarettes @1ppd. EMS gave a DuoNeb enroute. Duration: Day(s): (4) Severity: Moderate Associated Symptoms: Reports: Cough, Shortness of Breath - Related Data Allergies Allergy/AdvReac Type Severity Reaction Status Date / Time cephalexin monohydrate Allergy Rash Verified 08/16/18 04:06 [From Keflex] pramipexole Allergy Itching Verified 08/16/18 04:06 topiramate [From Topamax] Allergy Rash Verified 08/16/18 04:06 Home Meds: Home Meds FLUoxetine [PROzac] 20 mg PO BID 09/16/15 [History] Albuterol Sulfate [Proventil Hfa] 2 puff IH Q4H PRN 03/30/17 [History] Ipratropium/Albuterol Sulfate [Iprat-Albut 0.5-3(2.5) mg/3 ml] 3 ml IH QID PRN 04/17/17 [History] Albuterol Sulfate [Albuterol Sulfate Hfa] 18 gm IH Q4HR PRN #1 hfa.aer.ad [Rx] Azithromycin 500 mg PO DAILY 09/28/18 [History] Past Medical History HEENT History: Reports: Cataract, Impaired Vision, Sinusitis Cardiovascular History: Reports: None Respiratory History: Reports: Asthma, Bronchitis, Recurrent, COPD, Pneumonia, Recurrent, SOB Gastrointestinal History: Reports: GERD Genitourinary History: Reports: UTI, Recurrent 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 HAS HAD SOME BLOOD WORK DONE FOR THIS. Hematologic History: Reports: None Immunologic History: Reports: None Oncologic (Cancer) History: Reports: None Dermatologic History: Reports: Other (See Below) Other Dermatologic History: HAS GOT RASHES FROM SOME MEDS IN THE PAST. - Infectious Disease History Infectious Disease History: Reports: Chicken Pox, Shingles - Past Surgical History Head Surgeries/Procedures: Reports: None Social & Family History - Family History Family Medical History: Noncontributory Cardiac: Reports: Stent Respiratory: Reports: Asthma Musculoskeletal: Reports: Other (See Below) Other Musculoskeletal Family History: multiple sclerosis Endocrine/Metabolic: Reports: Diabetes, Type I Oncologic: Reports: Pancreatic - Tobacco Use Smoking Status *Q: Current Every Day Smoker Tobacco Use Within Last Twelve Months: Cigarettes - Caffeine Use Caffeine Use: Reports: Coffee Other Caffeine Use: 4 CANS A DAY. ED ROS GENERAL - Review of Systems Review Of Systems: ROS reveals no pertinent complaints other than HPI. ED EXAM, GENERAL - Physical Exam Exam: See Below Exam Limited By: No Limitations General Appearance: Alert, WD/WN, No Apparent Distress Ears: Normal External Exam Nose: Normal Inspection Throat/Mouth: No Airway Compromise Head: Atraumatic, Normocephalic Neck: Supple Respiratory/Chest: No Respiratory Distress, Decreased Breath Sounds, Rhonchi Cardiovascular: Regular Rate, Rhythm, No Edema, No Murmur Extremities: Normal Inspection, Normal Range of Motion Neurological: Alert, Normal Cognition, No Motor/Sensory Deficits Psychiatric: Normal Affect, Normal Mood Skin Exam: Warm, Dry, Intact, Normal Color, No Rash EKG INTERPRETATION EKG Date: 09/28/18 Time: 22:44 Rhythm: Other (sinus tachycardia) Rate (Beats/Min): 110 Scenic: Normal P-Wave: Present QRS: Normal ST-T: Normal QT: Normal Course - Vital Signs Last Recorded V/S: Last Vital Signs Temp 36.7 C 09/28/18 21:40 Pulse 110 H 09/28/18 21:40 Resp 22 H 09/28/18 21:40 BP 109/75 09/28/18 21:40 Pulse Ox 93 L 09/28/18 21:40 - Orders/Labs/Meds Orders: Active Orders 24 hr Category Date Time Status Admission Status [Patient Status] [ADT] Routine ADT 09/28/18 22:42 Active EKG Documentation Completion [RC] ASDIRECTED Care 09/28/18 22:41 Active RT Aerosol Therapy [RC] ASDIRECTED Care 09/28/18 21:50 Active CXR [Chest 1V Frontal] [CR] Stat Exams 09/28/18 21:35 Taken Sodium Chloride 0.9% [Saline Flush] Med 09/28/18 22:10 Active 10 ml FLUSH ASDIRECTED PRN Saline Lock Insert [OM.PC] Routine Oth 09/28/18 22:10 Ordered EKG 12 Lead [EK] Stat Ther 09/28/18 22:41 Ordered Medication Orders Albuterol (Proventil Neb Soln) 2.5 mg NEB Q2H PRN PRN Reason: Shortness Of Breath/wheezing Albuterol/Ipratropium (Duoneb 3.0-0.5 Mg/3 Ml) 3 ml INH QID JOHN Azithromycin (Zithromax) 250 mg PO DAILY JOHN Stop: 10/03/18 09:01 Methylprednisolone Sodium Succinate (Solu-Medrol) 60 mg IVPUSH Q6H JOHN Nicotine (Habitrol) 14 mg TRDERM DAILY JOHN Sodium Chloride (Saline Flush) 10 ml FLUSH ASDIRECTED PRN PRN Reason: Keep Vein Open Labs: Laboratory Tests 09/28/18 09/28/18 09/28/18 Range/Units 22:00 22:00 22:16 WBC 13.2 H (4.5-12.0) X10-3/uL RBC 5.25 H (3.23-5.20) x10(6)uL Hgb 15.9 H (11.5-15.5) g/dL Hct 45.8 (30.0-51.3) % MCV 87.2 (80-96) fL MCH 30.3 (27.7-33.6) pg MCHC 34.8 (32.2-35.4) g/dL RDW 12.6 (11.5-15.5) % Plt Count 287 (125-369) X10(3)uL MPV 7.2 L (7.4-10.4) fL Neut % (Auto) 83.8 H (46-82) % Lymph % (Auto) 8.2 L (13-37) % [place] % (Auto) 6.3 (4-12) % Eos % (Auto) 0 L (1.0-5.0) % Baso % (Auto) 2 (0-2) % Neut # (Auto) 11.1 H (1.6-8.3) # Lymph # (Auto) 1.1 (0.6-5.0) # [place] # (Auto) 0.8 (0.0-1.3) # Eos # (Auto) 0.0 (0.0-0.8) # Baso # (Auto) 0.2 (0.0-0.2) # POC VBG pH 7.37 (7.31-7.41) POC VBG pCO2 43.5 (41-51) mmHG POC VBG HCO3 25.2 (23-28) mmol/L POC VBG Total CO2 27 (24-29) mmol/L POC VBG Base Excess 0 (-2-3) mmol/L Sodium 137 (135-145) mmol/L Potassium 4.2 (3.5-5.3) mmol/L Chloride 100 (100-110) mmol/L Carbon Dioxide 27 (21-32) mmol/L BUN 10 (7-18) mg/dL Creatinine 1.0 (0.55-1.02) mg/dL Est Cr Clr Drug Dosing TNP Estimated GFR (MDRD) > 60 (>60) BUN/Creatinine Ratio 10.0 (9-20) Glucose 112 (80-116) mg/dL Calcium 9.0 (8.6-10.2) mg/dL Total Bilirubin 0.3 (0.1-1.3) mg/dL AST 16 D (5-25) IU/L ALT 25 D (12-36) U/L Alkaline Phosphatase 124 H (56-112) IU/L Total Protein 7.4 (6.0-8.0) g/dL Albumin 4.0 (3.5-5.2) g/dL Globulin 3.4 g/dL Albumin/Globulin Ratio 1.2 Meds: Medications Generic Name Dose Route Start Last Admin Trade Name Freq PRN Reason Stop Dose Admin Albuterol 2.5 mg 09/28/18 22:51 Proventil Neb Soln NEB Q2H PRN Shortness Of Breath/wheezing Albuterol/Ipratropium 3 ml 09/29/18 09:00 Duoneb 3.0-0.5 Mg/3 Ml INH QID JOHN Azithromycin 250 mg 09/29/18 09:00 Zithromax PO 10/03/18 09:01 DAILY JOHN Methylprednisolone Sodium Succinate 60 mg 09/29/18 06:00 Solu-Medrol IVPUSH Q6H JOHN Nicotine 14 mg 09/29/18 09:00 Habitrol TRDERM DAILY JOHN Sodium Chloride 10 ml 09/28/18 22:10 Saline Flush FLUSH ASDIRECTED PRN Keep Vein Open Discontinued Medications Generic Name Dose Route Start Last Admin Trade Name Freq PRN Reason Stop Dose Admin Albuterol/Ipratropium 3 ml 09/28/18 21:50 09/28/18 22:10 Duoneb 3.0-0.5 Mg/3 Ml NEB 09/28/18 21:51 3 ml ONETIME ONE Administration Dexamethasone 10 mg 09/28/18 22:10 09/28/18 22:17 Dexamethasone IVPUSH 09/28/18 22:11 10 mg ONETIME ONE Administration - Radiology Interpretation Free Text/Narrative:: CXR: No acute cardiopulmonary disease. - Re-Assessments/Exams Free Text/Narrative Re-Assessment/Exam: 09/28/18 22:46 No improvement after DuoNeb and Decadron 10mg IV. Sa02 88-89% RA. Sa02 94% on 2.5L 02. Departure - Departure Time of Disposition: 23:07 Disposition: Admitted As Inpatient 66 Condition: Fair Clinical Impression: COPD exacerbation, Hypoxemia, Bronchitis - Discharge Information *PRESCRIPTION DRUG MONITORING PROGRAM REVIEWED*: No *COPY OF PRESCRIPTION DRUG MONITORING REPORT IN PATIENT CHRIST: Not Applicable - My Orders Last 24 Hours: My Active Orders 09/28/18 21:35 CXR [Chest 1V Frontal] [CR] Stat 09/28/18 21:50 RT Aerosol Therapy [RC] ASDIRECTED 09/28/18 22:10 Sodium Chloride 0.9% [Saline Flush] 10 ml FLUSH ASDIRECTED PRN Saline Lock Insert [OM.PC] Routine 09/28/18 22:41 EKG Documentation Completion [RC] ASDIRECTED EKG 12 Lead [EK] Stat 09/28/18 22:42 Admission Status [Patient Status] [ADT] Routine - Assessment/Plan Last 24 Hours: My Active Orders 09/28/18 21:35 CXR [Chest 1V Frontal] [CR] Stat 09/28/18 21:50 RT Aerosol Therapy [RC] ASDIRECTED 09/28/18 22:10 Sodium Chloride 0.9% [Saline Flush] 10 ml FLUSH ASDIRECTED PRN Saline Lock Insert [OM.PC] Routine 09/28/18 22:41 EKG Documentation Completion [RC] ASDIRECTED EKG 12 Lead [EK] Stat 09/28/18 22:42 Admission Status [Patient Status] [ADT] Routine
[2018-09-28] MEDS ORDERED: Dexamethasone 4 MG/ML SDV IVPUSH ONE (22:10)
[2018-09-29] MEDS: Albuterol 0.083% 2.5 MG/3 ML Neb Soln NEB PRN (02:50)
[2018-09-29] MEDS: methylPREDNISolone Sodium Succinate 125 MG/2 ML SDV IVPUSH SCH ×3 (06:00→18:28)
[2018-09-29] MEDS: Nicotine 14 MG/24 Hr Patch TRDERM SCH (08:29)
[2018-09-29] MEDS: Azithromycin 250 MG Tab PO SCH (08:35)
[2018-09-29] MEDS: Albuterol/Ipratropium 3.0-0.5 MG/3 ML Neb Soln INH SCH ×4 (08:35→20:38)
[2018-09-29] MEDS: FLUoxetine 20 MG Cap PO SCH ×2 (08:35→20:39)
--- NOTE | 2018-09-29 08:56 | PCM.HP ---
H&P History of Present Illness - General Date of Service: 09/29/18 Admit Problem/Dx: Admission Diagnosis/Problem Admission Diagnosis/Problem COPD with acute lower respiratory infection Source of Information: Patient History Limitations: Reports: No Limitations - History of Present Illness Initial Comments - Free Text/Narative: Teresa complains of shortness of breath, cough, symptoms lasting over 2 weeks after a insidious onset. Associated with difficulty breathing; wheezing and low-grade fever. Treated for sinusitis with Zpak but with no improvement. She has a history of COPD, and tobacco abuse that have been difficult control. She also has depression that is stable. - Related Data Allergies/Adverse Reactions: Allergies Allergy/AdvReac Type Severity Reaction Status Date / Time cephalexin monohydrate Allergy Rash Verified 08/16/18 04:06 [From Keflex] pramipexole Allergy Itching Verified 08/16/18 04:06 topiramate [From Topamax] Allergy Rash Verified 08/16/18 04:06 Home Medications: Home Meds FLUoxetine [PROzac] 20 mg PO BID 09/16/15 [History] Albuterol Sulfate [Proventil Hfa] 2 puff IH Q4H PRN 03/30/17 [History] Ipratropium/Albuterol Sulfate [Iprat-Albut 0.5-3(2.5) mg/3 ml] 3 ml IH QID PRN 04/17/17 [History] Azithromycin 500 mg PO DAILY 09/28/18 [History] Past Medical History - Past Health History Medical/Surgical History: Denies Medical/Surgical History HEENT History: Reports: Cataract, Impaired Vision, Sinusitis Cardiovascular History: Reports: None Respiratory History: Reports: Asthma, Bronchitis, Recurrent, COPD, Pneumonia, Recurrent, SOB Other Respiratory History: surgery R sinus area in 2013 Gastrointestinal History: Reports: GERD Genitourinary History: Reports: UTI, Recurrent [employer] History: Reports: , 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 HAS HAD SOME BLOOD WORK DONE FOR THIS. Hematologic History: Reports: None Immunologic History: Reports: None Oncologic (Cancer) History: Reports: None Dermatologic History: Reports: Other (See Below) Other Dermatologic History: HAS GOT RASHES FROM SOME MEDS IN THE PAST. - Infectious Disease History Infectious Disease History: Reports: Chicken Pox, Shingles - Past Surgical History Head Surgeries/Procedures: Reports: None Social & Family History - Family History Family Medical History: Noncontributory Cardiac: Reports: Stent Respiratory: Reports: Asthma Musculoskeletal: Reports: Other (See Below) Other Musculoskeletal Family History: multiple sclerosis Endocrine/Metabolic: Reports: Diabetes, Type I Oncologic: Reports: Pancreatic - Tobacco Use Smoking Status *Q: Current Every Day Smoker Years of Tobacco use: 20 Packs/Tins Daily: 1 Used Tobacco, but Quit: No Second Hand Smoke Exposure: Yes - Caffeine Use Caffeine Use: Reports: Coffee Other Caffeine Use: 4 CANS A DAY. - Recreational Drug Use Recreational Drug Use: No H&P Review of Systems - Review of Systems: Review Of Systems: ROS reveals no pertinent complaints other than HPI. Exam - Exam Exam: See Below - Vital Signs Vital Signs: Last Vital Signs Temp 99.8 F 09/29/18 00:00 Pulse 117 H 09/29/18 00:00 Resp 21 H 09/29/18 00:00 BP 119/77 09/29/18 00:00 Pulse Ox 93 L 09/29/18 00:00 Weight: 79.832 kg - Exam Quality Assessment: Supplemental Oxygen General: Moderate Distress HEENT: PERRLA, Hearing Intact, Mucosa Moist & [place], Nares Patent, Normal Nasal Septum, Posterior Pharynx Clear, Conjunctiva Clear, EOMI, EACs Clear, TMs Clear Neck: Supple, Trachea Midline, 2 Lungs: Decreased Breath Sounds, Rhonchi, Wheezing Cardiovascular: Regular Rate, Regular Rhythm GI/Abdominal Exam: Normal Bowel Sounds, Soft, Non-Tender, No Organomegaly, No Distention, No Abnormal Bruit, No Mass, Pelvis Stable (Female) Exam: Deferred Rectal (Female) Exam: Deferred Back Exam: Normal Inspection, Full Range of Motion, NT Extremities: Normal Inspection, Normal Range of Motion, Non-Tender, No Pedal Edema, Normal Capillary Refill Skin: Warm, Dry, Intact Neurological: Cranial Nerves Intact, Reflexes Equal Bilateral Neuro Extensive - Mental Status: Alert, Oriented x3, Normal Mood/Affect, Normal Cognition Neuro Extensive - Motor, Sensory, Reflexes: CN II-XII Intact, Normal Gait, Normal Reflexes Psychiatric: Alert, Normal Affect, Normal Mood - Patient Data Lab Results Last 24 hrs: Laboratory Results - last 24 hr 09/28/18 09/28/18 09/28/18 Range/Units 22:00 22:00 22:16 WBC 13.2 H (4.5-12.0) X10-3/uL RBC 5.25 H (3.23-5.20) x10(6)uL Hgb 15.9 H (11.5-15.5) g/dL Hct 45.8 (30.0-51.3) % MCV 87.2 (80-96) fL MCH 30.3 (27.7-33.6) pg MCHC 34.8 (32.2-35.4) g/dL RDW 12.6 (11.5-15.5) % Plt Count 287 (125-369) X10(3)uL MPV 7.2 L (7.4-10.4) fL Neut % (Auto) 83.8 H (46-82) % Lymph % (Auto) 8.2 L (13-37) % Morrison % (Auto) 6.3 (4-12) % Eos % (Auto) 0 L (1.0-5.0) % Baso % (Auto) 2 (0-2) % Neut # (Auto) 11.1 H (1.6-8.3) # Lymph # (Auto) 1.1 (0.6-5.0) # Morrison # (Auto) 0.8 (0.0-1.3) # Eos # (Auto) 0.0 (0.0-0.8) # Baso # (Auto) 0.2 (0.0-0.2) # Add Manual Diff Neutrophils % (Manual) (46-82) % Lymphocytes % (Manual) (13-37) % Monocytes % (Manual) (4-12) % POC VBG pH 7.37 (7.31-7.41) POC VBG pCO2 43.5 (41-51) mmHG POC VBG HCO3 25.2 (23-28) mmol/L POC VBG Total CO2 27 (24-29) mmol/L POC VBG Base Excess 0 (-2-3) mmol/L Sodium 137 (135-145) mmol/L Potassium 4.2 (3.5-5.3) mmol/L Chloride 100 (100-110) mmol/L Carbon Dioxide 27 (21-32) mmol/L BUN 10 (7-18) mg/dL Creatinine 1.0 (0.55-1.02) mg/dL Est Cr Clr Drug Dosing TNP Estimated GFR (MDRD) > 60 (>60) BUN/Creatinine Ratio 10.0 (9-20) Glucose 112 (80-116) mg/dL Calcium 9.0 (8.6-10.2) mg/dL Total Bilirubin 0.3 (0.1-1.3) mg/dL AST 16 D (5-25) IU/L ALT 25 D (12-36) U/L Alkaline Phosphatase 124 H (56-112) IU/L Total Protein 7.4 (6.0-8.0) g/dL Albumin 4.0 (3.5-5.2) g/dL Globulin 3.4 g/dL Albumin/Globulin Ratio 1.2 09/29/18 09/29/18 Range/Units 05:55 05:55 WBC 10.0 (4.5-12.0) X10-3/uL RBC 5.42 H (3.23-5.20) x10(6)uL Hgb 16.0 H (11.5-15.5) g/dL Hct 47.5 (30.0-51.3) % MCV 87.8 (80-96) fL MCH 29.5 (27.7-33.6) pg MCHC 33.6 (32.2-35.4) g/dL RDW 12.7 (11.5-15.5) % Plt Count 285 (125-369) X10(3)uL MPV 7.4 (7.4-10.4) fL Neut % (Auto) (46-82) % Lymph % (Auto) (13-37) % Morrison % (Auto) (4-12) % Eos % (Auto) (1.0-5.0) % Baso % (Auto) (0-2) % Neut # (Auto) (1.6-8.3) # Lymph # (Auto) (0.6-5.0) # Morrison # (Auto) (0.0-1.3) # Eos # (Auto) (0.0-0.8) # Baso # (Auto) (0.0-0.2) # Add Manual Diff Yes Neutrophils % (Manual) 94 H (46-82) % Lymphocytes % (Manual) 4 L (13-37) % Monocytes % (Manual) 2 L (4-12) % POC VBG pH (7.31-7.41) POC VBG pCO2 (41-51) mmHG POC VBG HCO3 (23-28) mmol/L POC VBG Total CO2 (24-29) mmol/L POC VBG Base Excess (-2-3) mmol/L Sodium 137 (135-145) mmol/L Potassium 4.8 (3.5-5.3) mmol/L Chloride 100 (100-110) mmol/L Carbon Dioxide 28 (21-32) mmol/L BUN 10 (7-18) mg/dL Creatinine 1.1 H (0.55-1.02) mg/dL Est Cr Clr Drug Dosing 54.55 Estimated GFR (MDRD) 54 L (>60) BUN/Creatinine Ratio 9.1 (9-20) Glucose 183 H (80-116) mg/dL Calcium 9.2 (8.6-10.2) mg/dL Total Bilirubin (0.1-1.3) mg/dL AST (5-25) IU/L ALT (12-36) U/L Alkaline Phosphatase (56-112) IU/L Total Protein (6.0-8.0) g/dL Albumin (3.5-5.2) g/dL Globulin g/dL Albumin/Globulin Ratio Result Diagrams: 09/29/18 05:55 09/29/18 05:55 - Problem List (1) COPD exacerbation SNOMED Code(s): 711144898 ICD Code: J44.1 - CHRONIC OBSTRUCTIVE PULMONARY DISEASE W (ACUTE) EXACERBATION Status: Acute Current Visit: Yes (2) Tobacco abuse SNOMED Code(s): 939943555 ICD Code: Z72.0 - TOBACCO USE Status: Acute Current Visit: Yes Problem List Initiated/Reviewed/Updated: Yes Orders Last 24hrs: Active Orders 24 hr Category Date Time Status Admission Status [Patient Status] [ADT] Routine ADT 09/28/18 22:42 Active EKG Documentation Completion [RC] ASDIRECTED Care 09/28/18 22:41 Active Notify Provider Vital Signs [RC] ASDIRECTED Care 09/28/18 22:52 Active Oxygen Therapy [RC] PRN Care 09/28/18 22:51 Active Pulse Oximetry [RC] PRN Care 09/28/18 22:52 Active RT Aerosol Therapy [RC] ASDIRECTED Care 09/28/18 21:50 Active Telemetry Monitoring [Cardiac Monitoring] [RC] Care 09/28/18 22:55 Active CONTINUOUS Up With Assistance [RC] ASDIRECTED Care 09/28/18 22:51 Active Vital Signs [RC] QSHIFT Care 09/28/18 22:51 Active Regular Diet [DIET] Diet 09/29/18 Breakfast Active CXR [Chest 1V Frontal] [CR] Stat Exams 09/28/18 21:35 Taken Albuterol [Proventil Neb Soln] Med 09/28/18 22:51 Active 2.5 mg NEB Q2H PRN Albuterol/Ipratropium [DuoNeb 3.0-0.5 MG/3 ML] Med 09/29/18 09:00 Active 3 ml INH QID Azithromycin [Zithromax] Med 09/29/18 09:00 Active 250 mg PO DAILY FLUoxetine [PROzac] Med 09/29/18 09:00 Active 20 mg PO BID Nicotine [Habitrol] Med 09/29/18 09:00 Active 14 mg TRDERM DAILY Sodium Chloride 0.9% [Saline Flush] Med 09/28/18 22:10 Active 10 ml FLUSH ASDIRECTED PRN methylPREDNISolone Sod Succ [Solu-MEDROL] Med 09/29/18 06:00 Active 60 mg IVPUSH Q6H Saline Lock Insert [OM.PC] Routine Oth 09/28/18 22:10 Ordered Resuscitation Status Routine Resus Stat 09/28/18 22:51 Ordered EKG 12 Lead [EK] Stat Ther 09/28/18 22:41 Ordered Medication Orders Albuterol (Proventil Neb Soln) 2.5 mg NEB Q2H PRN PRN Reason: Shortness Of Breath/wheezing Last Admin: 09/29/18 02:50 Dose: 2.5 mg Albuterol/Ipratropium (Duoneb 3.0-0.5 Mg/3 Ml) 3 ml INH QID JOHN Last Admin: 09/29/18 08:35 Dose: 3 ml Azithromycin (Zithromax) 250 mg PO DAILY [facility] Stop: 10/03/18 09:01 Last Admin: 09/29/18 08:35 Dose: 250 mg Fluoxetine HCl (Prozac) 20 mg PO BID [facility] Last Admin: 09/29/18 08:35 Dose: 20 mg Methylprednisolone Sodium Succinate (Solu-Medrol) 60 mg IVPUSH Q6H [facility] Last Admin: 09/29/18 06:00 Dose: 60 mg Nicotine (Habitrol) 14 mg TRDERM DAILY [facility] Last Admin: 09/29/18 08:29 Dose: 14 mg Sodium Chloride (Saline Flush) 10 ml FLUSH ASDIRECTED PRN PRN Reason: Keep Vein Open Assessment/Plan Comment:: Continue current therapy-IV Solu-Medrol, oral azithromycin ,O2 supplementation and DuoNeb's when necessary
[2018-09-30] MEDS: Sodium Chloride 0.9% 10 ML Syringe FLUSH PRN ×4 (00:39→17:09)
[2018-09-30] MEDS: methylPREDNISolone Sodium Succinate 125 MG/2 ML SDV IVPUSH SCH ×4 (00:39→17:07)
[2018-09-30] MEDS: Albuterol/Ipratropium 3.0-0.5 MG/3 ML Neb Soln INH SCH ×4 (08:03→20:10)
[2018-09-30] MEDS: FLUoxetine 20 MG Cap PO SCH ×2 (08:05→20:10)
[2018-09-30] MEDS: Azithromycin 250 MG Tab PO SCH (08:05)
--- NOTE | 2018-09-30 09:03 | PCM.PN ---
- General Info Date of Service: 09/30/18 Subjective Update: Feeling better. Still on O2 Functional Status: Reports: Pain Controlled - Review of Systems Pulmonary: Reports: Shortness of Breath Cardiovascular: Reports: No Symptoms Gastrointestinal: Reports: No Symptoms Genitourinary: Reports: No Symptoms Musculoskeletal: Reports: No Symptoms - Patient Data Vitals - Most Recent: Last Vital Signs Temp 97.8 F 09/30/18 00:00 Pulse 105 H 09/30/18 00:00 Resp 18 09/30/18 00:00 BP 135/71 09/30/18 00:00 Pulse Ox 93 L 09/30/18 00:00 Weight - Most Recent: 79.832 kg I&O - Last 24 Hours: Intake & Output 09/29/18 09/30/18 09/30/18 22:59 06:59 14:59 Output Total 300 Balance -300 Med Orders - Current: Current Medications Albuterol (Proventil Neb Soln) 2.5 mg NEB Q2H PRN PRN Reason: Shortness Of Breath/wheezing Last Admin: 09/29/18 02:50 Dose: 2.5 mg Albuterol/Ipratropium (Duoneb 3.0-0.5 Mg/3 Ml) 3 ml INH QID [facility] Last Admin: 09/30/18 08:03 Dose: 3 ml Azithromycin (Zithromax) 250 mg PO DAILY [facility] Stop: 10/03/18 09:01 Last Admin: 09/30/18 08:05 Dose: 250 mg Fluoxetine HCl (Prozac) 20 mg PO BID [facility] Last Admin: 09/30/18 08:05 Dose: 20 mg Methylprednisolone Sodium Succinate (Solu-Medrol) 60 mg IVPUSH Q6H [facility] Last Admin: 09/30/18 06:19 Dose: 60 mg Nicotine (Habitrol) 14 mg TRDERM DAILY [facility] Last Admin: 09/29/18 08:29 Dose: 14 mg Sodium Chloride (Saline Flush) 10 ml FLUSH ASDIRECTED PRN PRN Reason: Keep Vein Open Last Admin: 09/30/18 06:20 Dose: 10 ml Discontinued Medications Albuterol/Ipratropium (Duoneb 3.0-0.5 Mg/3 Ml) 3 ml NEB ONETIME ONE Stop: 09/28/18 21:51 Last Admin: 09/28/18 22:10 Dose: 3 ml Dexamethasone (Dexamethasone) 10 mg IVPUSH ONETIME ONE Stop: 09/28/18 22:11 Last Admin: 09/28/18 22:17 Dose: 10 mg - Exam Quality Assessment: Supplemental Oxygen General: Alert HEENT: Pupils Equal Lungs: Clear to Auscultation, Decreased Breath Sounds Cardiovascular: Regular Rate - Problem List & Annotations (1) COPD exacerbation SNOMED Code(s): 867698985 Code(s): J44.1 - CHRONIC OBSTRUCTIVE PULMONARY DISEASE W (ACUTE) EXACERBATION Status: Acute Current Visit: Yes (2) Tobacco abuse SNOMED Code(s): 143786037 Code(s): Z72.0 - TOBACCO USE Status: Acute Current Visit: Yes - Problem List Review Problem List Initiated/Reviewed/Updated: Yes - Plan Plan:: Continue current therapy-IV Solu-Medrol, oral azithromycin ,O2 supplementation and DuoNeb's when necessary
[2018-09-30] MEDS: Nicotine 14 MG/24 Hr Patch TRDERM SCH (09:32)
[2018-10-01] MEDS: Albuterol 0.083% 2.5 MG/3 ML Neb Soln NEB PRN (00:15)
[2018-10-01] MEDS: methylPREDNISolone Sodium Succinate 125 MG/2 ML SDV IVPUSH SCH ×4 (00:17→18:09)
[2018-10-01] MEDS: Sodium Chloride 0.9% 10 ML Syringe FLUSH PRN ×3 (00:18→18:12)
[2018-10-01] MEDS: FLUoxetine 20 MG Cap PO SCH ×2 (08:21→21:06)
[2018-10-01] MEDS: Azithromycin 250 MG Tab PO SCH (08:21)
[2018-10-01] MEDS: Albuterol/Ipratropium 3.0-0.5 MG/3 ML Neb Soln INH SCH ×4 (08:21→21:07)
--- NOTE | 2018-10-01 08:43 | PCM.PN ---
- General Info Date of Service: 10/01/18 Subjective Update: Better.Still coughs,and needs O2 Functional Status: Reports: Pain Controlled - Review of Systems HEENT: Reports: No Symptoms Pulmonary: Reports: Shortness of Breath Cardiovascular: Reports: No Symptoms Gastrointestinal: Reports: No Symptoms Genitourinary: Reports: No Symptoms Musculoskeletal: Reports: No Symptoms - Patient Data Vitals - Most Recent: Last Vital Signs Temp 95.9 F 09/30/18 20:45 Pulse 92 09/30/18 20:45 Resp 20 09/30/18 20:45 BP 131/79 09/30/18 20:45 Pulse Ox 92 L 09/30/18 23:58 Weight - Most Recent: 79.832 kg I&O - Last 24 Hours: Intake & Output 09/30/18 10/01/18 10/01/18 22:59 06:59 14:59 Output Total 1700 Balance -1700 Med Orders - Current: Current Medications Albuterol (Proventil Neb Soln) 2.5 mg NEB Q2H PRN PRN Reason: Shortness Of Breath/wheezing Last Admin: 10/01/18 00:15 Dose: 2.5 mg Albuterol/Ipratropium (Duoneb 3.0-0.5 Mg/3 Ml) 3 ml INH QID [facility] Last Admin: 10/01/18 08:21 Dose: 3 ml Azithromycin (Zithromax) 250 mg PO DAILY [facility] Stop: 10/03/18 09:01 Last Admin: 10/01/18 08:21 Dose: 250 mg Fluoxetine HCl (Prozac) 20 mg PO BID [facility] Last Admin: 10/01/18 08:21 Dose: 20 mg Methylprednisolone Sodium Succinate (Solu-Medrol) 60 mg IVPUSH Q6H [facility] Last Admin: 10/01/18 05:47 Dose: 60 mg Nicotine (Habitrol) 14 mg TRDERM DAILY [facility] Last Admin: 09/30/18 09:32 Dose: 14 mg Sodium Chloride (Saline Flush) 10 ml FLUSH ASDIRECTED PRN PRN Reason: Keep Vein Open Last Admin: 10/01/18 00:18 Dose: 10 ml Discontinued Medications Albuterol/Ipratropium (Duoneb 3.0-0.5 Mg/3 Ml) 3 ml NEB ONETIME ONE Stop: 09/28/18 21:51 Last Admin: 09/28/18 22:10 Dose: 3 ml Dexamethasone (Dexamethasone) 10 mg IVPUSH ONETIME ONE Stop: 09/28/18 22:11 Last Admin: 09/28/18 22:17 Dose: 10 mg - Exam Quality Assessment: Supplemental Oxygen General: Alert HEENT: Pupils Equal Lungs: Clear to Auscultation, Decreased Breath Sounds Cardiovascular: Regular Rate - Problem List & Annotations (1) COPD exacerbation SNOMED Code(s): 974433842 Code(s): J44.1 - CHRONIC OBSTRUCTIVE PULMONARY DISEASE W (ACUTE) EXACERBATION Status: Acute Current Visit: Yes (2) Tobacco abuse SNOMED Code(s): 494483088 Code(s): Z72.0 - TOBACCO USE Status: Acute Current Visit: Yes - Problem List Review Problem List Initiated/Reviewed/Updated: Yes - My Orders Last 24 Hours: My Active Orders 09/30/18 09:26 Cardiac Monitoring Discontinue [RC] Click to Edit 10/01/18 08:41 D-DIMER QUANTITATIVE [COAG] Routine PRO B-TYPE NATRIUR PEPT,BNPPRO [CHEM] Stat - Plan Plan:: Continue current therapy-IV Solu-Medrol, oral azithromycin ,O2 supplementation and DuoNeb's when necessary.Obtain D dimer and if high,CT chest.
[2018-10-01] MEDS: Nicotine 14 MG/24 Hr Patch TRDERM SCH (09:15)
[2018-10-02] MEDS: methylPREDNISolone Sodium Succinate 125 MG/2 ML SDV IVPUSH SCH ×2 (01:00→06:20)
[2018-10-02] MEDS: Sodium Chloride 0.9% 10 ML Syringe FLUSH PRN ×2 (01:18→06:21)
[2018-10-02] MEDS: Albuterol/Ipratropium 3.0-0.5 MG/3 ML Neb Soln INH SCH ×2 (06:51→08:11)
[2018-10-02] MEDS: Azithromycin 250 MG Tab PO SCH (08:09)
[2018-10-02] MEDS: FLUoxetine 20 MG Cap PO SCH (08:09)
[2018-10-02] MEDS: Nicotine 14 MG/24 Hr Patch TRDERM SCH (08:10)
--- NOTE | 2018-10-02 08:58 | PCM.PN ---
- General Info Date of Service: 10/02/18 Subjective Update: Better.Still coughs,and is off O2 - Review of Systems General: Reports: No Symptoms HEENT: Reports: No Symptoms Pulmonary: Reports: Shortness of Breath, Cough Cardiovascular: Reports: No Symptoms - Patient Data Vitals - Most Recent: Last Vital Signs Temp 97.2 F 10/02/18 06:23 Pulse 87 10/02/18 06:53 Resp 19 10/02/18 06:23 BP 115/74 10/02/18 00:00 Pulse Ox 91 L 10/02/18 06:23 Weight - Most Recent: 79.832 kg I&O - Last 24 Hours: Intake & Output 10/01/18 10/02/18 10/02/18 22:59 06:59 14:59 Output Total 800 Balance -800 Lab Results Last 24 Hours: Laboratory Results - last 24 hr 10/01/18 10/01/18 Range/Units 09:05 09:05 D-Dimer, Quantitative < 0.19 (0.0-0.59) mg/LFEU NT-Pro-B Natriuret Pep 543 H (<=125) pg/mL Med Orders - Current: Current Medications Albuterol (Proventil Neb Soln) 2.5 mg NEB Q2H PRN PRN Reason: Shortness Of Breath/wheezing Last Admin: 10/01/18 00:15 Dose: 2.5 mg Albuterol/Ipratropium (Duoneb 3.0-0.5 Mg/3 Ml) 3 ml INH QID [facility] Last Admin: 10/02/18 08:11 Dose: Not Given Azithromycin (Zithromax) 250 mg PO DAILY [facility] Stop: 10/03/18 09:01 Last Admin: 10/02/18 08:09 Dose: 250 mg Fluoxetine HCl (Prozac) 20 mg PO BID [facility] Last Admin: 10/02/18 08:09 Dose: 20 mg Methylprednisolone Sodium Succinate (Solu-Medrol) 60 mg IVPUSH Q6H [facility] Last Admin: 10/02/18 06:20 Dose: 60 mg Nicotine (Habitrol) 14 mg TRDERM DAILY [facility] Last Admin: 10/02/18 08:10 Dose: 14 mg Sodium Chloride (Saline Flush) 10 ml FLUSH ASDIRECTED PRN PRN Reason: Keep Vein Open Last Admin: 10/02/18 06:21 Dose: 10 ml Discontinued Medications Albuterol/Ipratropium (Duoneb 3.0-0.5 Mg/3 Ml) 3 ml NEB ONETIME ONE Stop: 09/28/18 21:51 Last Admin: 09/28/18 22:10 Dose: 3 ml Dexamethasone (Dexamethasone) 10 mg IVPUSH ONETIME ONE Stop: 09/28/18 22:11 Last Admin: 09/28/18 22:17 Dose: 10 mg - Exam General: Alert, Oriented HEENT: Pupils Equal Neck: Supple Lungs: Clear to Auscultation Cardiovascular: Regular Rate, Regular Rhythm - Problem List & Annotations (1) COPD exacerbation SNOMED Code(s): 479242092 Code(s): J44.1 - CHRONIC OBSTRUCTIVE PULMONARY DISEASE W (ACUTE) EXACERBATION Status: Acute Current Visit: Yes (2) Tobacco abuse SNOMED Code(s): 703520019 Code(s): Z72.0 - TOBACCO USE Status: Acute Current Visit: Yes - Problem List Review Problem List Initiated/Reviewed/Updated: Yes - Plan Plan:: [facility] home today.
--- NOTE | 2018-10-02 09:42 | DISCH ---
DISCHARGE DATE: 10/02/2018 REASON FOR ADMISSION: Chronic obstructive pulmonary disease exacerbation. DISCHARGE DIAGNOSES: 1. Chronic obstructive pulmonary disease exacerbation. 2. Lower respiratory tract infection. 3. Tobacco abuse. CONSULTATIONS: None. BRIEF HISTORY: A 43-year-old female who came in hypoxic, coughing, wheezing, and is a heavy smoker. She was diagnosed with COPD exacerbation and was treated with IV methylprednisolone. Over the next few days, she improved and coming off oxygen the day before discharge. She was also on nicotine replacement 14 mg of patch daily. She was discharged today on the same along with prednisone 10 mg b.i.d. and followup was recommended for 10/11/[address] Martinez. I spent more than 35 minutes in the discharge of the patient. /[id number] ZENOBIA/JOSE ALFREDO
[2018-10-02 09:59] VITALS: BP 135/82
== END 2018-10-02 09:53 | disposition home or self-care (01) | DRG 192 ==
LOC: FB.ED 21:31 → FB.MS 22:46
PROVIDERS: ADMIT Emergency Medicine; ATTEND Family Medicine
DX: J44.0 Chronic obstructive pulmonary disease with (acute) lower respiratory infection (principal); J20.9 Acute bronchitis, unspecified; F17.210 Nicotine dependence, cigarettes, uncomplicated; J44.1 Chronic obstructive pulmonary disease with (acute) exacerbation; H54.7 Unspecified visual loss; Z87.01 Personal history of pneumonia (recurrent); K21.9 Gastro-esophageal reflux disease without esophagitis; Z87.440 Personal history of urinary (tract) infections; F41.9 Anxiety disorder, unspecified; F32.9 Major depressive disorder, single episode, unspecified; Z88.1 Allergy status to other antibiotic agents; Z88.8 Allergy status to other drugs, medicaments and biological substances
CPT/HCPCS: 36415; 71045; 80048; 80053; 82803; 83880; 85025; 85379; 93005; 94640; 96374; 99285-25; A9270-GY; J1100; J2930; J7620-GY

== ENCOUNTER 2019-12-20 02:44 | Emergency (ER) | payer MEDICAID ==
[2019-12-20] MEDS ORDERED: predniSONE 10 MG Tab PO ONE (03:08)
[2019-12-20] MEDS ORDERED: Loratadine 10 MG Tab PO ONE (03:09)
[2019-12-20] MEDS ORDERED: Famotidine 20 MG Tab PO ONE (03:09)
--- NOTE | 2019-12-20 03:14 | EDM.PDOC ---
ED HPI GENERAL MEDICAL PROBLEM - General Stated Complaint: BUG BITES Time Seen by Provider: 12/20/19 02:55 Source of Information: Reports: Patient History Limitations: Reports: No Limitations - History of Present Illness INITIAL COMMENTS - FREE TEXT/NARRATIVE: c/o red itching skin pt is her with her son Murali, does not work outside the house, still smoking she awoke with red itchy skin on her right forearm, otherwise feels well h/o seasonal allergies altho does not take meds for it, no rhinorrhea son Murali has fair and dry skin, as does pt pt is barrel chested c/w COPD - Related Data Allergies Allergy/AdvReac Type Severity Reaction Status Date / Time cephalexin monohydrate Allergy Rash Verified 12/20/19 03:08 [From Keflex] pramipexole Allergy Itching Verified 12/20/19 03:08 topiramate [From Topamax] Allergy Rash Verified 12/20/19 03:08 Home Meds: Home Meds FLUoxetine [PROzac] 20 mg PO BID 09/16/15 [History] Albuterol Sulfate [Proventil Hfa] 2 puff IH Q4H PRN 03/30/17 [History] Ipratropium/Albuterol Sulfate [Iprat-Albut 0.5-3(2.5) mg/3 ml] 3 ml IH BID PRN 04/17/17 [History] Famotidine 20 mg PO DAILY #4 tablet 12/20/19 [Rx] Formoterol/Mometasone [Dulera 100-50 MCG] 2 puff IH BID 12/20/19 [History] Loratadine [Allergy] 10 mg PO DAILY #4 tablet 12/20/19 [Rx] Salmeterol Xinafoate [Serevent Diskus] 2 puff INH Q12H 12/20/19 [History] predniSONE 20 mg PO ASDIRECTED #5 tab 12/20/19 [Rx] Past Medical History - Past Health History Medical/Surgical History: Denies Medical/Surgical History HEENT History: Reports: Cataract, Impaired Vision, Sinusitis Cardiovascular History: Reports: None Respiratory History: Reports: Asthma, Bronchitis, Recurrent, COPD, Pneumonia, Recurrent, SOB Other Respiratory History: surgery R sinus area in 2013 Gastrointestinal History: Reports: GERD Genitourinary History: Reports: UTI, Recurrent 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 HAS HAD SOME BLOOD WORK DONE FOR THIS. Hematologic History: Reports: None Immunologic History: Reports: None Oncologic (Cancer) History: Reports: None Dermatologic History: Reports: Other (See Below) Other Dermatologic History: HAS GOT RASHES FROM SOME MEDS IN THE PAST. - Infectious Disease History Infectious Disease History: Reports: Chicken Pox, Shingles - Past Surgical History Head Surgeries/Procedures: Reports: None Social & Family History - Family History Family Medical History: Noncontributory Cardiac: Reports: Stent Respiratory: Reports: Asthma Musculoskeletal: Reports: Other (See Below) Other Musculoskeletal Family History: multiple sclerosis Endocrine/Metabolic: Reports: Diabetes, Type I Oncologic: Reports: Pancreatic - Caffeine Use Caffeine Use: Reports: Coffee Other Caffeine Use: 4 CANS A DAY. ED ROS GENERAL - Review of Systems Review Of Systems: See Below Constitutional: Reports: No Symptoms HEENT: Reports: No Symptoms Respiratory: Reports: No Symptoms Cardiovascular: Reports: No Symptoms Endocrine: Reports: No Symptoms GI/Abdominal: Reports: No Symptoms : Reports: No Symptoms Musculoskeletal: Reports: No Symptoms Skin: Reports: Pruritis, Rash Neurological: Reports: No Symptoms Psychiatric: Reports: No Symptoms Hematologic/Lymphatic: Reports: No Symptoms Immunologic: Reports: No Symptoms ED EXAM, SKIN/RASH Exam: See Below Exam Limited By: No Limitations General Appearance: Alert, WD/WN, No Apparent Distress Neck: Normal Inspection, Supple, Non-Tender, Full Range of Motion. No: Lymphadenopathy (R), Lymphadenopathy (L) Respiratory/Chest: Other (barrel chested, fair AE, no wheeze, no inc'd exp phase) Cardiovascular: Regular Rate, Rhythm, No Edema, No Murmur Psychiatric: Normal Affect, Normal Mood Skin: Warm, Dry, Intact, Other (R forearm with 4 firm nodules of 2 x 2 with 1 mm height all in a row with slight red base, on inner aspect R upper arm are similar 3 nodules in a cluster on a slightly edematous, red, blanchable 4 cm base, no epitrochlear or axillary LNs) Course - Re-Assessments/Exams Free Text/Narrative Re-Assessment/Exam: 12/20/19 03:25 PE c/w localized allergic reaction in pt with dry skin who appears to have underlying atopic dermatitis, bedbugs are likely suspect, no clinical evidence of secondary infection Departure - Departure Time of Disposition: 03:10 Disposition: Home, Self-Care 01 Condition: Good Clinical Impression: Allergic dermatitis - Discharge Information *PRESCRIPTION DRUG MONITORING PROGRAM REVIEWED*: Not Applicable *COPY OF PRESCRIPTION DRUG MONITORING REPORT IN PATIENT CHRIST: Not Applicable Prescriptions: Loratadine [Allergy] 10 mg PO DAILY #4 tablet Famotidine 20 mg PO DAILY #4 tablet predniSONE 20 mg PO ASDIRECTED #5 tab Instructions: Contact Dermatitis, Bedbugs Referrals: Ollie Martinez MD [Primary Care Provider] - Additional Instructions: You have a localized allergic reaction, possibly to bedbugs. You will want to check your mattress and bedroom for bedbugs. For allergic reaction, take the steroid prednisone 20 mg 2 tabs tomorrow, then 1 tab daily for 3 more days. For allergic reaction, take the antihistamine loratadine 10 mg 1 tab daily for 4 days beginning tomorrow. For allergic reaction, take the antihistamine famotidine 20 mg 1 tab daily for 4 days beginning tomorrow. If necessary, for allergic reaction, may also take diphenhydramine 25 mg 1-2 tabs every 6 hours as needed. The redness should fade by later this morning. See your doctor in one week for further evaluation and recommendations. However, see your doctor if your symptoms are getting worse, which would be unlikely.
[2019-12-20 03:16] VITALS: BP 142/76; PULSE 96
== END 2019-12-20 03:31 | disposition home or self-care (01) ==
LOC: FB.ED 02:44
DX: L23.9 Allergic contact dermatitis, unspecified cause (principal); J44.9 Chronic obstructive pulmonary disease, unspecified; K21.9 Gastro-esophageal reflux disease without esophagitis; F41.9 Anxiety disorder, unspecified; F32.9 Major depressive disorder, single episode, unspecified; Z88.1 Allergy status to other antibiotic agents; Z88.8 Allergy status to other drugs, medicaments and biological substances; Z79.899 Other long term (current) drug therapy
CPT/HCPCS: 99284; A9270; J7512; 99282

== ENCOUNTER 2020-01-24 17:55 | Emergency (ER) | payer MEDICAID ==
[2020-01-24] MEDS ORDERED: predniSONE 20 MG Tab PO STA (18:58)
[2020-01-24] MEDS ORDERED: Albuterol/Ipratropium 3.0-0.5 MG/3 ML Neb Soln NEB ONE (18:58)
[2020-01-24] MEDS ORDERED: Amoxicillin/Clavulanate K 875-125 MG Tab PO STA (19:06)
[2020-01-24] MEDS ORDERED: Ondansetron 4 MG Tab.DIS PO STA (19:13)
--- NOTE | 2020-01-24 19:13 | EDM.PDOC ---
ED HPI GENERAL MEDICAL PROBLEM - General Stated Complaint: SOB,WHEZZY,CAUGHING UP MUCAS Time Seen by Provider: 01/24/20 18:30 Source of Information: Reports: Patient History Limitations: Reports: No Limitations - History of Present Illness INITIAL COMMENTS - FREE TEXT/NARRATIVE: Patient presented to the ED because of increasing cough, dyspnea, wheezing, and facial pain for several days. There is no associated fever/chills. She has a history of COPD and Asthma but she still smokes 1/2 PPD. Back Pain Score (Numeric/FACES): 3 - Related Data Allergies Allergy/AdvReac Type Severity Reaction Status Date / Time cephalexin monohydrate Allergy Rash Verified 12/20/19 03:08 [From Keflex] pramipexole Allergy Itching Verified 12/20/19 03:08 topiramate [From Topamax] Allergy Rash Verified 12/20/19 03:08 Home Meds: Home Meds FLUoxetine [PROzac] 20 mg PO BID 09/16/15 [History] Albuterol Sulfate [Proventil Hfa] 2 puff IH Q4H PRN 03/30/17 [History] Ipratropium/Albuterol Sulfate [Iprat-Albut 0.5-3(2.5) mg/3 ml] 3 ml IH BID PRN 04/17/17 [History] Famotidine 20 mg PO DAILY #4 tablet 12/20/19 [Rx] Formoterol/Mometasone [Dulera 100-50 MCG] 2 puff IH BID 12/20/19 [History] Loratadine [Allergy] 10 mg PO DAILY #4 tablet 12/20/19 [Rx] Salmeterol Xinafoate [Serevent Diskus] 2 puff INH Q12H 12/20/19 [History] predniSONE 20 mg PO ASDIRECTED #5 tab 12/20/19 [Rx] Amoxicillin/Clavulanate K [Augmentin 875-125 MG] 1 tab PO BID #20 tablet 01/24/20 [Rx] predniSONE [Prednisone] 40 mg PO DAILY #10 tablet 01/24/20 [Rx] Past Medical History - Past Health History Medical/Surgical History: Denies Medical/Surgical History HEENT History: Reports: Cataract, Impaired Vision, Sinusitis Cardiovascular History: Reports: None Respiratory History: Reports: Asthma, Bronchitis, Recurrent, COPD, Pneumonia, Recurrent, SOB Other Respiratory History: surgery R sinus area in 2014 Gastrointestinal History: Reports: GERD Genitourinary History: Reports: UTI, Recurrent 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 HAS HAD SOME BLOOD WORK DONE FOR THIS. Hematologic History: Reports: None Immunologic History: Reports: None Oncologic (Cancer) History: Reports: None Dermatologic History: Reports: Other (See Below) Other Dermatologic History: HAS GOT RASHES FROM SOME MEDS IN THE PAST. - Infectious Disease History Infectious Disease History: Reports: Chicken Pox, Shingles - Past Surgical History Head Surgeries/Procedures: Reports: None Social & Family History - Family History Family Medical History: Noncontributory Cardiac: Reports: Stent Respiratory: Reports: Asthma Musculoskeletal: Reports: Other (See Below) Other Musculoskeletal Family History: multiple sclerosis Endocrine/Metabolic: Reports: Diabetes, Type I Oncologic: Reports: Pancreatic - Caffeine Use Caffeine Use: Reports: Coffee Other Caffeine Use: 4 CANS A DAY. ED ROS GENERAL - Review of Systems Review Of Systems: See Below Constitutional: Reports: No Symptoms HEENT: Reports: No Symptoms Respiratory: Reports: Shortness of Breath, Wheezing, Cough Cardiovascular: Reports: No Symptoms Endocrine: Reports: No Symptoms GI/Abdominal: Reports: No Symptoms : Reports: No Symptoms Musculoskeletal: Reports: No Symptoms Skin: Reports: No Symptoms Neurological: Reports: No Symptoms Psychiatric: Reports: No Symptoms Hematologic/Lymphatic: Reports: No Symptoms Immunologic: Reports: No Symptoms ED EXAM, GENERAL - Physical Exam Exam: See Below Exam Limited By: No Limitations General Appearance: Alert, No Apparent Distress Eye Exam: Bilateral Eye: PERRL Ears: Normal External Exam, Normal Canal Nose: Normal Inspection, Normal Mucosa Throat/Mouth: Normal Inspection, Normal Lips, Normal Teeth Head: Atraumatic, Normocephalic Neck: Normal Inspection, Supple, Non-Tender, Full Range of Motion Respiratory/Chest: No Respiratory Distress, Lungs Clear, Rhonchi, Wheezing Cardiovascular: Normal Peripheral Pulses, Regular Rate, Rhythm, No Edema, No Gallop GI/Abdominal: Normal Bowel Sounds, Soft, Non-Tender, No Organomegaly Back Exam: Normal Inspection, Full Range of Motion Extremities: Normal Inspection, Normal Range of Motion, Non-Tender Neurological: Alert, Oriented, CN II-XII Intact, Normal Cognition, Normal Gait, Normal Reflexes, No Motor/Sensory Deficits Course - Vital Signs Text/Narrative:: CXR-se result Prednisone 40 mg PO x1 Zofran ODT 4 mg po x1 Duoneb x1 Last Recorded V/S: Last Vital Signs Temp 38.6 C H 01/24/20 20:15 Pulse 118 H 01/24/20 20:15 Resp 24 H 01/24/20 20:15 BP 141/77 H 01/24/20 20:15 Pulse Ox 90 L 01/24/20 20:15 - Orders/Labs/Meds Orders: Active Orders 24 hr Category Date Time Status Chest 2V [CR] Stat Exams 01/24/20 18:29 Taken Meds: Medications Discontinued Medications Generic Name Dose Route Start Last Admin Trade Name Quynh PRN Reason Stop Dose Admin Albuterol/Ipratropium 3 ml 01/24/20 18:58 01/24/20 19:17 Duoneb 3.0-0.5 Mg/3 Ml NEB 01/24/20 18:59 3 ml ONETIME ONE Administration Amoxicillin/Clavulanate Potassium 1 tab 01/24/20 19:06 01/24/20 19:17 Augmentin 875 Mg/125 Mg PO 01/24/20 19:07 1 tab NOW STA Administration Ondansetron HCl 4 mg 01/24/20 19:13 01/24/20 19:17 Zofran Odt PO 01/24/20 19:14 4 mg NOW STA Administration Prednisone 40 mg 01/24/20 18:58 01/24/20 19:17 Prednisone PO 01/24/20 18:59 40 mg NOW STA Administration Departure - Departure Time of Disposition: 19:30 Disposition: Home, Self-Care 01 Condition: Good Clinical Impression: COPD exacerbation, Asthma exacerbation, Sinusitis - Discharge Information Prescriptions: Amoxicillin/Clavulanate K [Augmentin 875-125 MG] 1 tab PO BID #20 tablet predniSONE [Prednisone] 40 mg PO DAILY #10 tablet Instructions: Chronic Obstructive Pulmonary Disease Exacerbation, [id number], Amoxicillin; Clavulanic Acid tablets, Ondansetron oral dissolving tablet, Asthma, Adult, [id number], Prednisone tablets Referrals: Ollie Martinez MD [Primary Care Provider] - Forms: ED Department Discharge Additional Instructions: Please read discharge instructions on COPD and Asthma exacerbation Smoke less cigarettes while you're being treated Duoneb every 6 hours for 3 days then as needed Prednisone 40 mg daily for 5 days Continue your inhalers Augmentin 875 mg twice daily for 10 days Follow up as needed Sepsis Event Note (ED) - Evaluation Sepsis Screening Result: No Definite Risk - Focused Exam Vital Signs: Vital Signs Temp Pulse Resp BP Pulse Ox 01/24/20 20:15 38.6 C H 118 H 24 H 141/77 H 90 L 01/24/20 19:35 119 H 24 H 131/80 90 L 01/24/20 18:28 36.7 C 116 H 18 139/77 95 - My Orders Last 24 Hours: My Active Orders 01/24/20 18:29 Chest 2V [CR] Stat - Assessment/Plan Last 24 Hours: My Active Orders 01/24/20 18:29 Chest 2V [CR] Stat
[2020-01-24 20:53] VITALS: BP 141/77; PULSE 118
--- NOTE | 2020-01-25 10:36 | CR ---
INDICATION: Cough, dyspnea. CHEST, 2 VIEWINGS: PA and 2 lateral views of the chest were obtained 01/24/20 and compared with 09/28/18 and 08/16/18. The heart appears to be normal in size and shape. Minimal calcifications suggested in the arch of the aorta. Pulmonary markings appear similar to previous examination without a definite active infiltrate or effusion identified. A mild dextroconcave scoliosis at the lower middle thoracic spine is noted. IMPRESSION: No acute process. MTDD
== END 2020-01-24 20:16 | disposition home or self-care (01) ==
LOC: FB.ED 17:55
DX: J45.901 Unspecified asthma with (acute) exacerbation (principal); J44.1 Chronic obstructive pulmonary disease with (acute) exacerbation; J32.9 Chronic sinusitis, unspecified; K21.9 Gastro-esophageal reflux disease without esophagitis; F41.9 Anxiety disorder, unspecified; F32.9 Major depressive disorder, single episode, unspecified; Z88.1 Allergy status to other antibiotic agents; Z88.8 Allergy status to other drugs, medicaments and biological substances; Z79.899 Other long term (current) drug therapy
CPT/HCPCS: 71046; 94640; 99285; A9270; J7512; J7620-GY

== ENCOUNTER 2020-01-27 22:35 | Emergency (ER) | payer MEDICAID ==
[2020-01-27] MEDS ORDERED: methylPREDNISolone Sodium Succinate 125 MG/2 ML SDV IVPUSH ONE (23:00)
--- NOTE | 2020-01-27 23:00 | EDM.PDOC ---
ED HPI GENERAL MEDICAL PROBLEM - General Stated Complaint: SOB Time Seen by Provider: 01/27/20 22:35 Source of Information: Reports: Patient History Limitations: Reports: No Limitations - History of Present Illness INITIAL COMMENTS - FREE TEXT/NARRATIVE: pt with metal Hx along with Hx of COPD/ asthma and ongoing tobacco abuse, was seen here 3 days ago and treated for COPD exacerbation , tells me she was doing fine with the prednisone but this evening she felt SOB and contacted EMS, pt report mild dry cough, denies any fever or chills or chest pain, was given DuoNeb by EMS in rout to hospital and on arrival she feels fine , has nl vitals and denies now any distress. - Related Data Allergies Allergy/AdvReac Type Severity Reaction Status Date / Time cephalexin monohydrate Allergy Rash Verified 12/20/19 03:08 [From Keflex] pramipexole Allergy Itching Verified 12/20/19 03:08 topiramate [From Topamax] Allergy Rash Verified 12/20/19 03:08 Home Meds: Home Meds FLUoxetine [PROzac] 20 mg PO BID 09/16/15 [History] Albuterol Sulfate [Proventil Hfa] 2 puff IH Q4H PRN 03/30/17 [History] Ipratropium/Albuterol Sulfate [Iprat-Albut 0.5-3(2.5) mg/3 ml] 3 ml IH BID PRN 04/17/17 [History] Famotidine 20 mg PO DAILY #4 tablet 12/20/19 [Rx] Formoterol/Mometasone [Dulera 100-50 MCG] 2 puff IH BID 12/20/19 [History] Loratadine [Allergy] 10 mg PO DAILY #4 tablet 12/20/19 [Rx] Salmeterol Xinafoate [Serevent Diskus] 2 puff INH Q12H 12/20/19 [History] predniSONE 20 mg PO ASDIRECTED #5 tab 12/20/19 [Rx] Amoxicillin/Clavulanate K [Augmentin 875-125 MG] 1 tab PO BID #20 tablet 01/24/20 [Rx] predniSONE [Prednisone] 40 mg PO DAILY #10 tablet 01/24/20 [Rx] Past Medical History - Past Health History Medical/Surgical History: Denies Medical/Surgical History HEENT History: Reports: Cataract, Impaired Vision, Sinusitis Cardiovascular History: Reports: None Respiratory History: Reports: Asthma, Bronchitis, Recurrent, COPD, Pneumonia, Recurrent, SOB Other Respiratory History: surgery R sinus area in 2013 Gastrointestinal History: Reports: GERD Genitourinary History: Reports: UTI, Recurrent 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 HAS HAD SOME BLOOD WORK DONE FOR THIS. Hematologic History: Reports: None Immunologic History: Reports: None Oncologic (Cancer) History: Reports: None Dermatologic History: Reports: Other (See Below) Other Dermatologic History: HAS GOT RASHES FROM SOME MEDS IN THE PAST. - Infectious Disease History Infectious Disease History: Reports: Chicken Pox, Shingles - Past Surgical History Head Surgeries/Procedures: Reports: None Social & Family History - Family History Family Medical History: Noncontributory Cardiac: Reports: Stent Respiratory: Reports: Asthma Musculoskeletal: Reports: Other (See Below) Other Musculoskeletal Family History: multiple sclerosis Endocrine/Metabolic: Reports: Diabetes, Type I Oncologic: Reports: Pancreatic - Caffeine Use Caffeine Use: Reports: Coffee Other Caffeine Use: 4 CANS A DAY. ED ROS GENERAL - Review of Systems Review Of Systems: See Below Constitutional: Reports: No Symptoms HEENT: Reports: No Symptoms Respiratory: Reports: Shortness of Breath, Cough Cardiovascular: Reports: No Symptoms GI/Abdominal: Reports: No Symptoms Musculoskeletal: Reports: No Symptoms Skin: Reports: No Symptoms Neurological: Reports: No Symptoms ED EXAM, GENERAL - Physical Exam Exam: See Below General Appearance: Alert, No Apparent Distress Nose: Normal Inspection, Normal Mucosa Throat/Mouth: Normal Inspection, Normal Oropharynx Head: Atraumatic, Normocephalic Neck: Normal Inspection Respiratory/Chest: No Respiratory Distress, Wheezing (mild experatory wheezing noted bilaterally. ) Cardiovascular: Normal Peripheral Pulses, Regular Rate, Rhythm GI/Abdominal: Normal Bowel Sounds, Soft Extremities: Normal Inspection, Normal Range of Motion, Normal Capillary Refill Neurological: Alert, Oriented, CN II-XII Intact Skin Exam: Warm Course - Vital Signs Text/Narrative:: pt has COPD with mild flare , she has stable vitals and responding well to nebs, was given solumedrol 125 here and was asked to continue with recently prescribed course of amoxicillin and prednisone, pt to follow with PCP on Thursday for re-check. Departure - Departure Time of Disposition: 23:00 Disposition: Home, Self-Care Clinical Impression: COPD exacerbation - Discharge Information Referrals: Ollie Martinez MD [Primary Care Provider] -
[2020-01-27] MEDS ORDERED: Sodium Chloride 0.9% 10 ML Syringe FLUSH ONE (23:29)
[2020-01-28 00:25] VITALS: PULSE 100
== END 2020-01-27 23:45 | disposition home or self-care (01) ==
LOC: FB.ED 22:35
DX: J44.1 Chronic obstructive pulmonary disease with (acute) exacerbation (principal); K21.9 Gastro-esophageal reflux disease without esophagitis; F41.9 Anxiety disorder, unspecified; F32.9 Major depressive disorder, single episode, unspecified; Z88.8 Allergy status to other drugs, medicaments and biological substances; Z88.1 Allergy status to other antibiotic agents; Z79.899 Other long term (current) drug therapy
CPT/HCPCS: 96374; 99285-25; J2930

== ENCOUNTER 2020-01-29 02:26 | Inpatient (IN) | payer MEDICAID ==
[2020-01-29] MEDS ORDERED: Albuterol/Ipratropium 3.0-0.5 MG/3 ML Neb Soln NEB ONE ×2 (02:30→04:25)
[2020-01-29] MEDS ORDERED: Albuterol/Ipratropium 3.0-0.5 MG/3 ML Neb Soln ONE (02:31)
--- NOTE | 2020-01-29 06:47 | EDM.PDOC ---
ED HPI GENERAL MEDICAL PROBLEM - General Chief Complaint: Respiratory Problem Stated Complaint: SOB Time Seen by Provider: 01/29/20 03:00 Source of Information: Reports: Patient History Limitations: Reports: No Limitations - History of Present Illness INITIAL COMMENTS - FREE TEXT/NARRATIVE: pt with COPD/ athma , ongoing tobacco abuse/ o2 dependant with recent diagnosis of COPD exacerbation, on prednisone and Augmentin is back again to ER for second time within 24 hrs with c/o sever dyspnea and wheezing, report dry cough, denies fever or chills or any other associated sx or concerns. - Related Data Allergies Allergy/AdvReac Type Severity Reaction Status Date / Time cephalexin monohydrate Allergy Rash Verified 01/29/20 04:30 [From Keflex] pramipexole Allergy Itching Verified 01/29/20 04:30 topiramate [From Topamax] Allergy Rash Verified 01/29/20 04:30 Home Meds: Home Meds FLUoxetine [PROzac] 20 mg PO BID 09/16/15 [History] Albuterol Sulfate [Proventil Hfa] 2 puff IH Q4H PRN 03/30/17 [History] Ipratropium/Albuterol Sulfate [Iprat-Albut 0.5-3(2.5) mg/3 ml] 3 ml IH BID PRN 04/17/17 [History] Famotidine 20 mg PO DAILY #4 tablet 12/20/19 [Rx] Formoterol/Mometasone [Dulera 100-50 MCG] 2 puff IH BID 12/20/19 [History] Loratadine [Allergy] 10 mg PO DAILY #4 tablet 12/20/19 [Rx] Salmeterol Xinafoate [Serevent Diskus] 2 puff INH Q12H 12/20/19 [History] Amoxicillin/Clavulanate K [Augmentin 875-125 MG] 1 tab PO BID #20 tablet 01/24/20 [Rx] predniSONE [Prednisone] 40 mg PO DAILY #10 tablet 01/24/20 [Rx] Past Medical History - Past Health History Medical/Surgical History: Denies Medical/Surgical History HEENT History: Reports: Cataract, Impaired Vision, Sinusitis Cardiovascular History: Reports: None Respiratory History: Reports: Asthma, Bronchitis, Recurrent, COPD, Pneumonia, Recurrent, SOB Other Respiratory History: surgery R sinus area in 2013 Gastrointestinal History: Reports: GERD Genitourinary History: Reports: UTI, Recurrent 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 HAS HAD SOME BLOOD WORK DONE FOR THIS. Hematologic History: Reports: None Immunologic History: Reports: None Oncologic (Cancer) History: Reports: None Dermatologic History: Reports: Other (See Below) Other Dermatologic History: HAS GOT RASHES FROM SOME MEDS IN THE PAST. - Infectious Disease History Infectious Disease History: Reports: Chicken Pox, Shingles - Past Surgical History Head Surgeries/Procedures: Reports: None Social & Family History - Family History Family Medical History: Noncontributory Cardiac: Reports: Stent Respiratory: Reports: Asthma Musculoskeletal: Reports: Other (See Below) Other Musculoskeletal Family History: multiple sclerosis Endocrine/Metabolic: Reports: Diabetes, Type I Oncologic: Reports: Pancreatic - Caffeine Use Caffeine Use: Reports: Coffee Other Caffeine Use: 4 CANS A DAY. ED ROS GENERAL - Review of Systems Review Of Systems: See Below Respiratory: Reports: Shortness of Breath, Wheezing, Cough Cardiovascular: Reports: No Symptoms GI/Abdominal: Reports: No Symptoms : Reports: No Symptoms Musculoskeletal: Reports: No Symptoms Skin: Reports: No Symptoms ED EXAM, GENERAL - Physical Exam Exam: See Below Exam Limited By: No Limitations General Appearance: Alert, Mild Distress, Moderate Distress Ears: Normal Canal, Normal TMs Nose: Normal Inspection Throat/Mouth: Normal Inspection, Normal Oropharynx Head: Atraumatic, Normocephalic Neck: Normal Inspection, Supple, Non-Tender Respiratory/Chest: No Respiratory Distress, Wheezing, Prolonged Expiration Cardiovascular: Normal Peripheral Pulses, Regular Rate, Rhythm, No Murmur GI/Abdominal: Normal Bowel Sounds, Soft, Non-Tender Back Exam: Normal Inspection, Full Range of Motion Extremities: Normal Inspection, Normal Range of Motion Neurological: Alert, Oriented, CN II-XII Intact, Normal Reflexes, No Motor/Sen herman Deficits Course - Vital Signs Text/Narrative:: pt is desatting to low 80s withminimal acctivitis, she is comfortable now after due nebs and sats are at 92 on 2 litters / was taken off non rebreather placed by EMT. CXR is clear to me, d-dimer is neg, WBC is at 19 k/ likely secondary to steroids . pt has COPD exacerbation / will admit for medical mng. start Levaquin and continue with steroids. Last Recorded V/S: Last Vital Signs Temp Pulse Resp BP Pulse Ox 97 01/29/20 04:45 - Orders/Labs/Meds Orders: Active Orders 24 hr Category Date Time Status Oxygen Therapy, ED [RC] ASDIRECTED Care 01/29/20 02:30 Active RT Aerosol Therapy [RC] ASDIRECTED Care 01/29/20 02:30 Active RT Aerosol Therapy [RC] ASDIRECTED Care 01/29/20 04:26 Active Chest 1V Frontal [CR] Stat Exams 01/29/20 02:40 Taken Labs: Laboratory Tests 01/29/20 01/29/20 01/29/20 Range/Units 02:43 02:43 02:43 WBC 19.7 H (4.5-12.0) X10-3/uL RBC 4.96 (3.23-5.20) x10(6)uL Hgb 14.2 (11.5-15.5) g/dL Hct 42.9 (30.0-51.3) % MCV 86.6 (80-96) fL MCH 28.6 (27.7-33.6) pg MCHC 33.1 (32.2-35.4) g/dL RDW 12.6 (11.5-15.5) % Plt Count 440 H (125-369) X10(3)uL MPV 7.2 L (7.4-10.4) fL Add Manual Diff Yes Neutrophils % (Manual) 66 (46-82) % Band Neutrophils % 3 (0-6) % Lymphocytes % (Manual) 22 (13-37) % Monocytes % (Manual) 9 (4-12) % D-Dimer, Quantitative 0.31 (0.0-0.59) mg/LFEU Sodium 136 (135-145) mmol/L Potassium 3.6 D (3.5-5.3) mmol/L Chloride 99 L (100-110) mmol/L Carbon Dioxide 26 (21-32) mmol/L BUN 13 (7-18) mg/dL Creatinine 0.9 (0.55-1.02) mg/dL Est Cr Clr Drug Dosing TNP Estimated GFR (MDRD) > 60 (>60) BUN/Creatinine Ratio 14.4 (9-20) Glucose 225 H (80-116) mg/dL Calcium 9.0 (8.6-10.2) mg/dL Total Bilirubin 0.3 (0.1-1.3) mg/dL AST 13 D (5-25) IU/L ALT 24 (12-36) U/L Alkaline Phosphatase 131 H (56-112) IU/L Total Protein 7.2 (6.0-8.0) g/dL Albumin 3.3 L (3.5-5.2) g/dL Globulin 3.9 g/dL Albumin/Globulin Ratio 0.9 Meds: Medications Discontinued Medications Generic Name Dose Route Start Last Admin Trade Name Freq PRN Reason Stop Dose Admin Albuterol/Ipratropium Confirm 01/29/20 02:31 01/29/20 04:21 Duoneb 3.0-0.5 Mg/3 Ml Administered 01/29/20 02:32 Not Given Dose 3 ml .ROUTE .STK-MED ONE Albuterol/Ipratropium 3 ml 01/29/20 02:30 01/29/20 02:36 Duoneb 3.0-0.5 Mg/3 Ml NEB 01/29/20 02:31 3 ml ONETIME ONE Administration Albuterol/Ipratropium 3 ml 01/29/20 04:25 01/29/20 04:29 Duoneb 3.0-0.5 Mg/3 Ml NEB 01/29/20 04:26 3 ml ONETIME ONE Administration Departure - Departure Time of Disposition: 07:00 Disposition: Admitted As Inpatient 66 Clinical Impression: COPD exacerbation - Discharge Information Referrals: Ollie Martinez MD [Primary Care Provider] - Forms: ED Department Discharge Sepsis Event Note (ED) - Focused Exam Vital Signs: Vital Signs Pulse Ox Pulse Ox 01/29/20 04:45 97 01/29/20 03:45 94 L 01/29/20 03:30 97 01/29/20 02:33 98 01/29/20 02:30 100 - My Orders Last 24 Hours: My Active Orders 01/29/20 02:30 Oxygen Therapy, ED [RC] ASDIRECTED RT Aerosol Therapy [RC] ASDIRECTED 01/29/20 02:40 Chest 1V Frontal [CR] Stat 01/29/20 04:26 RT Aerosol Therapy [RC] ASDIRECTED - Assessment/Plan Last 24 Hours: My Active Orders 01/29/20 02:30 Oxygen Therapy, ED [RC] ASDIRECTED RT Aerosol Therapy [RC] ASDIRECTED 01/29/20 02:40 Chest 1V Frontal [CR] Stat 01/29/20 04:26 RT Aerosol Therapy [RC] ASDIRECTED
[2020-01-29] MEDS ORDERED: Albuterol/Ipratropium 3.0-0.5 MG/3 ML Neb Soln NEB PRN (07:03)
[2020-01-29] MEDS ORDERED: methylPREDNISolone Sodium Succinate 125 MG/2 ML SDV IVPUSH SCH (07:15)
[2020-01-29] MEDS: Levofloxacin/Dextrose 5%-Water 500 MG in Premix Bag 1 BAG IV SCH (07:40)
--- NOTE | 2020-01-29 08:14 | PCM.HP.2 ---
H&P History of Present Illness - General Date of Service: 01/29/20 Admit Problem/Dx: Admission Diagnosis/Problem Admission Diagnosis/Problem COPD with acute lower respiratory infection Source of Information: Patient History Limitations: Reports: No Limitations - History of Present Illness Initial Comments - Free Text/Narative: This is a 44-year-old female patient with a known history of COPD and asthma comes in the ER because of COPD exacerbation, shortness of breath and wheezing. She says currently she can only walk to her bathroom and normally she can walk as far she wants patches over [id number] smoking history and continues to smoke. She is on inhalers currently. She was seen in the ER within last 24 hours put on prednisone 40 mg a day and Augmentin. But in spite of that she's not improving. She told the ER doc she had a dry cough and told me she has a cough that has whitish sputum. She says she has chills occasionally but no fevers. She denies nasal congestion, sore throat, chest pain. - Related Data Allergies/Adverse Reactions: Allergies Allergy/AdvReac Type Severity Reaction Status Date / Time cephalexin monohydrate Allergy Rash Verified 01/29/20 04:30 [From Keflex] pramipexole Allergy Itching Verified 01/29/20 04:30 topiramate [From Topamax] Allergy Rash Verified 01/29/20 04:30 Home Medications: Home Meds FLUoxetine [PROzac] 20 mg PO BID 09/16/15 [History] Albuterol Sulfate [Proventil Hfa] 2 puff IH Q4H PRN 03/30/17 [History] Ipratropium/Albuterol Sulfate [Iprat-Albut 0.5-3(2.5) mg/3 ml] 3 ml IH BID PRN 04/17/17 [History] Famotidine 20 mg PO DAILY #4 tablet 12/20/19 [Rx] Formoterol/Mometasone [Dulera 100-50 MCG] 2 puff IH BID 12/20/19 [History] Loratadine [Allergy] 10 mg PO DAILY #4 tablet 12/20/19 [Rx] Salmeterol Xinafoate [Serevent Diskus] 2 puff INH Q12H 12/20/19 [History] Amoxicillin/Clavulanate K [Augmentin 875-125 MG] 1 tab PO BID #20 tablet 01/24/20 [Rx] predniSONE [Prednisone] 40 mg PO DAILY #10 tablet 01/24/20 [Rx] Past Medical History - Past Health History Medical/Surgical History: Denies Medical/Surgical History HEENT History: Reports: Cataract, Impaired Vision, Sinusitis Cardiovascular History: Reports: None Respiratory History: Reports: Asthma, Bronchitis, Recurrent, COPD, Pneumonia, Recurrent, SOB Other Respiratory History: surgery R sinus area in 2013 Gastrointestinal History: Reports: GERD Genitourinary History: Reports: UTI, Recurrent 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 HAS HAD SOME BLOOD WORK DONE FOR THIS. Hematologic History: Reports: None Immunologic History: Reports: None Oncologic (Cancer) History: Reports: None Dermatologic History: Reports: Other (See Below) Other Dermatologic History: HAS GOT RASHES FROM SOME MEDS IN THE PAST. - Infectious Disease History Infectious Disease History: Reports: Chicken Pox, Shingles - Past Surgical History Head Surgeries/Procedures: Reports: None Social & Family History - Family History Family Medical History: Noncontributory Cardiac: Reports: Stent Respiratory: Reports: Asthma Musculoskeletal: Reports: Other (See Below) Other Musculoskeletal Family History: multiple sclerosis Endocrine/Metabolic: Reports: Diabetes, Type I Oncologic: Reports: Pancreatic - Tobacco Use Smoking Status *Q: Current Every Day Smoker Years of Tobacco use: 30 Packs/Tins Daily: 0.5 Used Tobacco, but Quit: No Tobacco Use Comment: smoking 0.5 pack daily but trying to quite Second Hand Smoke Exposure: No - Caffeine Use Caffeine Use: Reports: None Other Caffeine Use: 4 CANS A DAY. - Recreational Drug Use Recreational Drug Use: No H&P Review of Systems - Review of Systems: Review Of Systems: See Below General: Reports: Chills HEENT: Reports: No Symptoms Pulmonary: Reports: Shortness of Breath, Wheezing, Cough, Sputum. Denies: Hemoptysis Cardiovascular: Reports: No Symptoms Gastrointestinal: Reports: No Symptoms Genitourinary: Reports: No Symptoms Musculoskeletal: Reports: No Symptoms Skin: Reports: No Symptoms Psychiatric: Reports: No Symptoms Neurological: Reports: No Symptoms Hematologic/Lymphatic: Reports: No Symptoms Immunologic: Reports: No Symptoms Exam - Exam Exam: See Below - Vital Signs Vital Signs: Last Vital Signs Temp 97.8 F 01/29/20 07:01 Pulse 98 01/29/20 07:01 Resp 18 01/29/20 07:01 BP 114/71 01/29/20 07:01 Pulse Ox 92 L 01/29/20 07:01 Weight: 179 lb - Exam General: Alert, Oriented, Cooperative HEENT: Hearing Intact, Mucosa Moist & Arthur, Posterior Pharynx Clear, TMs Clear Neck: Supple, Trachea Midline Lungs: Other (Lungs are very tight bilateral some expiratory wheezes. She is not using accessory muscle respiration.) Cardiovascular: Regular Rate, Regular Rhythm. No: Tachycardia, Systolic Murmur GI/Abdominal Exam: Normal Bowel Sounds, Soft, Non-Tender, No Organomegaly, No Distention Back Exam: Normal Inspection, Full Range of Motion Extremities: Normal Inspection, Normal Range of Motion, Non-Tender, No Pedal Edema Skin: Warm, Dry, Intact Neurological: Normal Speech, Normal Tone Psychiatric: Alert, Normal Affect, Normal Mood - Patient Data Lab Results Last 24 hrs: Laboratory Results - last 24 hr 01/29/20 01/29/20 01/29/20 Range/Units 02:43 02:43 02:43 WBC 19.7 H (4.5-12.0) X10-3/uL RBC 4.96 (3.23-5.20) x10(6)uL Hgb 14.2 (11.5-15.5) g/dL Hct 42.9 (30.0-51.3) % MCV 86.6 (80-96) fL MCH 28.6 (27.7-33.6) pg MCHC 33.1 (32.2-35.4) g/dL RDW 12.6 (11.5-15.5) % Plt Count 440 H (125-369) X10(3)uL MPV 7.2 L (7.4-10.4) fL Add Manual Diff Yes Neutrophils % (Manual) 66 (46-82) % Band Neutrophils % 3 (0-6) % Lymphocytes % (Manual) 22 (13-37) % Monocytes % (Manual) 9 (4-12) % D-Dimer, Quantitative 0.31 (0.0-0.59) mg/LFEU Sodium 136 (135-145) mmol/L Potassium 3.6 D (3.5-5.3) mmol/L Chloride 99 L (100-110) mmol/L Carbon Dioxide 26 (21-32) mmol/L BUN 13 (7-18) mg/dL Creatinine 0.9 (0.55-1.02) mg/dL Est Cr Clr Drug Dosing TNP Estimated GFR (MDRD) > 60 (>60) BUN/Creatinine Ratio 14.4 (9-20) Glucose 225 H (80-116) mg/dL Calcium 9.0 (8.6-10.2) mg/dL Total Bilirubin 0.3 (0.1-1.3) mg/dL AST 13 D (5-25) IU/L ALT 24 (12-36) U/L Alkaline Phosphatase 131 H (56-112) IU/L Total Protein 7.2 (6.0-8.0) g/dL Albumin 3.3 L (3.5-5.2) g/dL Globulin 3.9 g/dL Albumin/Globulin Ratio 0.9 Result Diagrams: 01/29/20 02:43 01/29/20 02:43 Sepsis Event Note - Focused Exam Vital Signs: Vital Signs Temp Pulse Resp BP Pulse Ox Pulse Ox Pulse Ox 01/29/20 07:01 97.8 F 98 18 114/71 92 L 01/29/20 04:45 97 01/29/20 03:45 94 L 01/29/20 03:30 97 01/29/20 02:33 98 01/29/20 02:30 100 - Problem List (1) COPD exacerbation SNOMED Code(s): 898653186 ICD Code: J44.1 - CHRONIC OBSTRUCTIVE PULMONARY DISEASE W (ACUTE) EXACERBATION Status: Acute Current Visit: Yes (2) Acute bronchitis SNOMED Code(s): 59864256 ICD Code: J20.9 - ACUTE BRONCHITIS, UNSPECIFIED Status: Acute Current Visit: No (3) Asthma SNOMED Code(s): 643321129 ICD Code: J45.909 - UNSPECIFIED ASTHMA, UNCOMPLICATED Status: Acute Current Visit: No (4) Tobacco abuse SNOMED Code(s): 158678538 ICD Code: Z72.0 - TOBACCO USE Status: Acute Current Visit: No Problem List Initiated/Reviewed/Updated: Yes Orders Last 24hrs: Active Orders 24 hr Category Date Time Status Patient Status [ADT] Routine ADT 01/29/20 07:01 Active Antiembolic Devices [RC] .Routine Care 01/29/20 07:02 Active Oxygen Therapy, ED [RC] ASDIRECTED Care 01/29/20 02:30 Active Pulse Oximetry [RC] PRN Care 01/29/20 07:01 Active RT Aerosol Therapy [RC] ASDIRECTED Care 01/29/20 02:30 Active RT Aerosol Therapy [RC] ASDIRECTED Care 01/29/20 04:26 Active RT Aerosol Therapy [RC] ASDIRECTED Care 01/29/20 07:04 Active Up With Assistance [RC] ASDIRECTED Care 01/29/20 07:01 Active Up ad Shoshana [RC] ASDIRECTED Care 01/29/20 08:07 Ordered VTE/DVT Education [RC] Click to Edit Care 01/29/20 07:02 Active Vital Signs [RC] Q4H Care 01/29/20 07:01 Active Regular Diet [DIET] Diet 01/29/20 Lunch Active Chest 1V Frontal [CR] Stat Exams 01/29/20 02:40 Taken CORONAVIRUS COVID-19 LEFTY [MOLEC] Routine Lab 01/29/20 08:01 Ordered Albuterol/Ipratropium [DuoNeb 3.0-0.5 MG/3 ML] Med 01/29/20 07:03 Active 3 ml NEB Q4H PRN Enoxaparin [Lovenox] Med 01/29/20 09:00 Ordered 40 mg SUBCUT DAILY Levofloxacin/Dextrose 5%-Water [Levaquin in D5W 500 MG/ Med 01/29/20 07:15 Active 100 ML] 500 mg Premix Bag 1 bag IV Q24H Nicotine [Habitrol] Med 01/29/20 09:00 Ordered 21 mg TRDERM DAILY methylPREDNISolone Sod Succ [Solu-MEDROL] Med 01/29/20 07:15 Active 125 mg IVPUSH Q8H DVT/VTE Prophylaxis Reflex [OM.PC] Per Unit Routine Oth 01/29/20 07:01 Ordered Resuscitation Status Routine Resus Stat 01/29/20 07:01 Ordered Medication Orders Albuterol/Ipratropium (Duoneb 3.0-0.5 Mg/3 Ml) 3 ml NEB Q4H PRN PRN Reason: Shortness of Breath Enoxaparin Sodium (Lovenox) 40 mg SUBCUT DAILY [facility] Levofloxacin/Dextrose 500 mg/ (Premix) 100 mls @ 100 mls/hr IV Q24H [facility] Last Admin: 01/29/20 07:40 Dose: 100 mls/hr Documented by: ALEIDA Methylprednisolone Sodium Succinate (Solu-Medrol) 125 mg IVPUSH Q8H [facility] Last Admin: 01/29/20 07:36 Dose: 125 mg Documented by: ALEIDA Nicotine (Habitrol) 21 mg TRDERM DAILY [facility] Assessment/Plan Comment:: 1. Admit to inpatient. 2. Full code 3. SCD/Lovenox for clot prophylaxis 4. Solu-Medrol IV and Levaquin IV 5. Duo nebs every 3 hours when necessary 6. O2 nasal cannula keep oxygen greater than 90% 7. Regular diet 8. Up ad shoshana. 9. Discussed smoking cessation. Will start nicotine patch 20 g a day. 10. As soon as the medications are reconciled I will restart some of them. - Mortality Measure Prognosis:: Good
[2020-01-29] MEDS: Nicotine 21 MG/24 Hr Patch TRDERM SCH (10:17)
[2020-01-29] MEDS: Enoxaparin 40 MG/0.4 ML Syringe SUBCUT SCH (10:17)
[2020-01-29] MEDS: Albuterol/Ipratropium 3.0-0.5 MG/3 ML Neb Soln NEB SCH ×2 (16:24→20:20)
[2020-01-29] MEDS: methylPREDNISolone Sodium Succinate 125 MG/2 ML SDV IVPUSH SCH (20:16)
[2020-01-29] MEDS: Sodium Chloride 0.9% 10 ML Syringe FLUSH PRN (20:18)
[2020-01-30] MEDS: Albuterol/Ipratropium 3.0-0.5 MG/3 ML Neb Soln NEB SCH ×2 (06:11→10:35)
[2020-01-30] MEDS: Levofloxacin/Dextrose 5%-Water 500 MG in Premix Bag 1 BAG IV SCH (06:17)
[2020-01-30] MEDS: Sodium Chloride 0.9% 10 ML Syringe FLUSH PRN ×2 (07:28→09:31)
--- NOTE | 2020-01-30 08:36 | PCM.PN ---
- General Info Date of Service: 01/30/20 Admission Dx/Problem (Free Text): Patient states she's feeling better with less wheeziness and less shortness of breath or she has fevers, chills, cough. She is weak because her 12-year-old daughter is home and wants her to come home. She wants to be discharged today. - Patient Data Vitals - Most Recent: Last Vital Signs Temp 97.7 F 01/29/20 23:23 Pulse 93 01/30/20 06:11 Resp 20 01/29/20 23:23 BP 153/93 H 01/29/20 23:23 Pulse Ox 92 L 01/30/20 06:14 Weight - Most Recent: 179 lb I&O - Last 24 Hours: Intake & Output 01/29/20 01/30/20 01/30/20 22:59 06:59 14:59 Intake Total 400 Balance 400 Lab Results Last 24 Hours: Laboratory Results - last 24 hr 01/29/20 01/30/20 01/30/20 Range/Units 09:10 06:40 06:40 WBC 15.2 H (4.5-12.0) X10-3/uL RBC 5.08 (3.23-5.20) x10(6)uL Hgb 14.6 (11.5-15.5) g/dL Hct 44.1 (30.0-51.3) % MCV 86.7 (80-96) fL MCH 28.7 (27.7-33.6) pg MCHC 33.1 (32.2-35.4) g/dL RDW 13.0 (11.5-15.5) % Plt Count 450 H (125-369) X10(3)uL MPV 7.4 (7.4-10.4) fL Add Manual Diff Yes Sodium 140 (135-145) mmol/L Potassium 4.4 (3.5-5.3) mmol/L Chloride 101 (100-110) mmol/L Carbon Dioxide 28 (21-32) mmol/L BUN 15 (7-18) mg/dL Creatinine 1.0 (0.55-1.02) mg/dL Est Cr Clr Drug Dosing 59.39 mL/min Estimated GFR (MDRD) > 60 (>60) BUN/Creatinine Ratio 15.0 (9-20) Glucose 291 H (80-116) mg/dL Calcium 9.3 (8.6-10.2) mg/dL SARS-CoV-2 RNA (LEFTY) Negative (NEGATIVE) Med Orders - Current: Current Medications Albuterol/Ipratropium (Duoneb 3.0-0.5 Mg/3 Ml) 3 ml NEB Q4H PRN PRN Reason: Shortness of Breath Last Admin: 01/29/20 10:18 Dose: 3 ml Documented by: Albuterol/Ipratropium (Duoneb 3.0-0.5 Mg/3 Ml) 3 ml NEB QIDRT [facility] Last Admin: 01/30/20 06:11 Dose: 3 ml Documented by: Enoxaparin Sodium (Lovenox) 40 mg SUBCUT DAILY [facility] Last Admin: 01/29/20 10:17 Dose: 40 mg Documented by: Levofloxacin/Dextrose 500 mg/ (Premix) 100 mls @ 100 mls/hr IV Q24H [facility] Last Admin: 01/30/20 06:17 Dose: 100 mls/hr Documented by: Methylprednisolone Sodium Succinate (Solu-Medrol) 125 mg IVPUSH Q12H [facility] Last Admin: 01/29/20 20:16 Dose: 125 mg Documented by: Nicotine (Habitrol) 21 mg TRDERM DAILY [facility] Last Admin: 01/29/20 10:17 Dose: 21 mg Documented by: Sodium Chloride (Saline Flush) 10 ml FLUSH ASDIRECTED PRN PRN Reason: IV Use Last Admin: 01/30/20 07:28 Dose: 10 ml Documented by: Discontinued Medications Albuterol/Ipratropium (Duoneb 3.0-0.5 Mg/3 Ml) Confirm Administered Dose 3 ml .ROUTE .STK-MED ONE Stop: 01/29/20 02:32 Last Admin: 01/29/20 04:21 Dose: Not Given Documented by: Albuterol/Ipratropium (Duoneb 3.0-0.5 Mg/3 Ml) 3 ml NEB ONETIME ONE Stop: 01/29/20 02:31 Last Admin: 01/29/20 02:36 Dose: 3 ml Documented by: Albuterol/Ipratropium (Duoneb 3.0-0.5 Mg/3 Ml) 3 ml NEB ONETIME ONE Stop: 01/29/20 04:26 Last Admin: 01/29/20 04:29 Dose: 3 ml Documented by: Methylprednisolone Sodium Succinate (Solu-Medrol) 125 mg IVPUSH Q8H [facility] Last Admin: 01/29/20 07:36 Dose: 125 mg Documented by: - Exam General: Alert, Oriented, Cooperative Lungs: Other (Decreased breath sounds bilateral expiratory wheezes.) Cardiovascular: Regular Rate, Regular Rhythm, No Murmurs Extremities: No Pedal Edema Sepsis Event Note - Evaluation Sepsis Screening Result: No Definite Risk - Focused Exam Vital Signs: Vital Signs Temp Pulse Resp BP Pulse Ox 01/30/20 06:14 92 L 01/30/20 06:11 93 01/29/20 23:23 97.7 F 93 20 153/93 H 93 L - Problem List & Annotations (1) COPD exacerbation SNOMED Code(s): 799787383 Code(s): J44.1 - CHRONIC OBSTRUCTIVE PULMONARY DISEASE W (ACUTE) EXACERBATION Status: Acute Current Visit: Yes (2) Acute bronchitis SNOMED Code(s): 54995530 Code(s): J20.9 - ACUTE BRONCHITIS, UNSPECIFIED Status: Acute Current Visit: No (3) Asthma SNOMED Code(s): 324096041 Code(s): J45.909 - UNSPECIFIED ASTHMA, UNCOMPLICATED Status: Acute Current Visit: No (4) Tobacco abuse SNOMED Code(s): 402113262 Code(s): Z72.0 - TOBACCO USE Status: Acute Current Visit: No (5) Hyperglycemia SNOMED Code(s): 28624583 Code(s): R73.9 - HYPERGLYCEMIA, UNSPECIFIED Status: Acute Current Visit: Yes - Problem List Review Problem List Initiated/Reviewed/Updated: Yes - My Orders Last 24 Hours: My Active Orders 01/29/20 08:07 Up ad Shoshana [RC] ASDIRECTED 01/29/20 09:00 Enoxaparin [Lovenox] 40 mg SUBCUT DAILY Nicotine [Habitrol] 21 mg TRDERM DAILY 01/29/20 Lunch Regular Diet [DIET] 01/29/20 17:00 Albuterol/Ipratropium [DuoNeb 3.0-0.5 MG/3 ML] 3 ml NEB QIDRT 01/29/20 20:00 methylPREDNISolone Sod Succ [Solu-MEDROL] 125 mg IVPUSH Q12H 01/29/20 20:17 Sodium Chloride 0.9% [Saline Flush] 10 ml FLUSH ASDIRECTED PRN 01/30/20 05:11 CXR [Chest 2V] [CR] AM 01/30/20 06:40 CBC WITH AUTO DIFF [HEME] AM - Plan Plan:: 1. Nurses walk the patient and she maintained O2 93-94% without oxygen. 2. Patient is insisting on going home. I told her wouldn't be a bad idea to stay later or events tomorrow but she wants to go because she needs take care of her daughter. 3. We'll discharge her on prednisone, Levaquin, nicotine patch. She already has nebulizers at home. 4. She should recheck with her primary provider Dr. Yates in 5-7 days and have her blood sugar checked.
--- NOTE | 2020-01-30 08:46 | PCM.DCSUM1 ---
Discharge Summary - Hospital Course Free Text/Narrative:: Hospital course-patient was admitted put on Solu-Medrol 125 mg IV every 8 hours and Levaquin 500 mg and nebulizers. She required oxygen to keep her saturations greater than 90% oxygen 1 L. She's having some wheezes and shortness of breath. By the next morning she felt much better although she was very sad because her 12-year-old daughter was home and she is being taken care by-year-old sister she has no specific and other. So she was weepy and wanted to go home. She says she felt much better with less shortness of breath unless wheezing. She had no fevers, chills or she was here. Her white count was elevated and it did improve. Chest x-ray with I do not see any pneumonia wait for radiology interpretation which hasn't been done because it's the weekend. Her platelets are slightly elevated and her blood sugar was high. She is on prednisone and she states she has no history of diabetes. Will have a check on outpatient basis. I will send her home on a tapering dose of prednisone, Levaquin and she is open to trying the nicotine patch to quit smoking. Brief History: This is a 44-year-old female patient with a known history of COPD and asthma comes in the ER because of COPD exacerbation, shortness of breath and wheezing. She says currently she can only walk to her bathroom and normally she can walk as far she wants patches over [id number] smoking history and continues to smoke. She is on inhalers currently. She was seen in the ER within last 24 hours put on prednisone 40 mg a day and Augmentin. But in spite of that she's not improving. She told the ER doc she had a dry cough and told me she has a cough that has whitish sputum. She says she has chills occasionally but no fevers. She denies nasal congestion, sore throat, chest pain. Diagnosis: Stroke: No - Discharge Data Discharge Date: 01/30/20 Discharge Disposition: Home, Self-Care 01 Condition: Good - Referral to Home Health Primary Care Physician: Ollie Martinez MD - Discharge Diagnosis/Problem(s) (1) COPD exacerbation SNOMED Code(s): 950816581 ICD Code: J44.1 - CHRONIC OBSTRUCTIVE PULMONARY DISEASE W (ACUTE) EXACERBATION Status: Acute Current Visit: Yes (2) Acute bronchitis SNOMED Code(s): 76201031 ICD Code: J20.9 - ACUTE BRONCHITIS, UNSPECIFIED Status: Acute Current Visit: No (3) Asthma SNOMED Code(s): 432829714 ICD Code: J45.909 - UNSPECIFIED ASTHMA, UNCOMPLICATED Status: Acute Current Visit: No (4) Tobacco abuse SNOMED Code(s): 299297642 ICD Code: Z72.0 - TOBACCO USE Status: Acute Current Visit: No (5) Hyperglycemia SNOMED Code(s): 77534078 ICD Code: R73.9 - HYPERGLYCEMIA, UNSPECIFIED Status: Acute Current Visit: Yes (6) Thrombocytosis SNOMED Code(s): 2884262 ICD Code: D47.3 - ESSENTIAL (HEMORRHAGIC) THROMBOCYTHEMIA Status: Acute Current Visit: Yes - Patient Instructions Diet: Regular Diet as Tolerated Activity: As Tolerated Driving: May Drive Today Showering/Bathing: May Shower Other/Special Instructions: 1. Recheck with Dr. Yates in 5-7 days. 2. CBC and BMP at the appointment. - Discharge Plan Prescriptions/Med Rec: Nicotine [Habitrol] 21 mg TRDERM DAILY #30 patch levoFLOXacin [Levaquin] 750 mg PO DAILY #6 tab predniSONE [Prednisone] 40 mg PO DAILY #10 tablet Home Medications: Home Meds FLUoxetine [PROzac] 20 mg PO BID 09/16/15 [History] Albuterol Sulfate [Proventil Hfa] 2 puff IH Q4H PRN 03/30/17 [History] Albuterol/Ipratropium [DuoNeb 3.0-0.5 MG/3 ML] 3 ml PO QID PRN 01/30/20 [History] Mometasone/Formoterol [Dulera 200 MCG/5 MCG] 2 puff PO BID 01/30/20 [History] Nicotine [Habitrol] 21 mg TRDERM DAILY #30 patch 01/30/20 [Rx] Tiotropium [place] [Spiriva Respimat] 2 puff PO DAILY 01/30/20 [History] levoFLOXacin [Levaquin] 750 mg PO DAILY #6 tab 01/30/20 [Rx] predniSONE [Prednisone] 40 mg PO DAILY #10 tablet 01/30/20 [Rx] Patient Handouts: Chronic Obstructive Pulmonary Disease, [id number], Fall Prevention in Hospitals, Adult, Sequential Compression Device, Venous Thromboembolism Prevention Forms: ED Department Discharge Referrals: Ollie Martinez MD [Primary Care Provider] - - Discharge Summary/Plan Comment DC Time >30 min.: No - Patient Data Vitals - Most Recent: Last Vital Signs Temp 97.7 F 01/29/20 23:23 Pulse 93 01/30/20 06:11 Resp 20 01/29/20 23:23 BP 153/93 H 01/29/20 23:23 Pulse Ox 92 L 01/30/20 06:14 Weight - Most Recent: 179 lb I&O - Last 24 hours: Intake & Output 01/29/20 01/30/20 01/30/20 22:59 06:59 14:59 Intake Total 400 Balance 400 Lab Results - Last 24 hrs: Laboratory Results - last 24 hr 01/29/20 01/30/20 01/30/20 Range/Units 09:10 06:40 06:40 WBC 15.2 H (4.5-12.0) X10-3/uL RBC 5.08 (3.23-5.20) x10(6)uL Hgb 14.6 (11.5-15.5) g/dL Hct 44.1 (30.0-51.3) % MCV 86.7 (80-96) fL MCH 28.7 (27.7-33.6) pg MCHC 33.1 (32.2-35.4) g/dL RDW 13.0 (11.5-15.5) % Plt Count 450 H (125-369) X10(3)uL MPV 7.4 (7.4-10.4) fL Add Manual Diff Yes Sodium 140 (135-145) mmol/L Potassium 4.4 (3.5-5.3) mmol/L Chloride 101 (100-110) mmol/L Carbon Dioxide 28 (21-32) mmol/L BUN 15 (7-18) mg/dL Creatinine 1.0 (0.55-1.02) mg/dL Est Cr Clr Drug Dosing 59.39 mL/min Estimated GFR (MDRD) > 60 (>60) BUN/Creatinine Ratio 15.0 (9-20) Glucose 291 H (80-116) mg/dL Calcium 9.3 (8.6-10.2) mg/dL SARS-CoV-2 RNA (LEFTY) Negative (NEGATIVE) Med Orders - Current: Current Medications Albuterol/Ipratropium (Duoneb 3.0-0.5 Mg/3 Ml) 3 ml NEB Q4H PRN PRN Reason: Shortness of Breath Last Admin: 01/29/20 10:18 Dose: 3 ml Documented by: Albuterol/Ipratropium (Duoneb 3.0-0.5 Mg/3 Ml) 3 ml NEB QIDRT [facility] Last Admin: 01/30/20 06:11 Dose: 3 ml Documented by: Enoxaparin Sodium (Lovenox) 40 mg SUBCUT DAILY [facility] Last Admin: 01/29/20 10:17 Dose: 40 mg Documented by: Levofloxacin/Dextrose 500 mg/ (Premix) 100 mls @ 100 mls/hr IV Q24H [facility] Last Admin: 01/30/20 06:17 Dose: 100 mls/hr Documented by: Methylprednisolone Sodium Succinate (Solu-Medrol) 125 mg IVPUSH Q12H [facility] Last Admin: 01/29/20 20:16 Dose: 125 mg Documented by: Nicotine (Habitrol) 21 mg TRDERM DAILY [facility] Last Admin: 01/29/20 10:17 Dose: 21 mg Documented by: Sodium Chloride (Saline Flush) 10 ml FLUSH ASDIRECTED PRN PRN Reason: IV Use Last Admin: 01/30/20 07:28 Dose: 10 ml Documented by: Discontinued Medications Albuterol/Ipratropium (Duoneb 3.0-0.5 Mg/3 Ml) Confirm Administered Dose 3 ml .ROUTE .STK-MED ONE Stop: 01/29/20 02:32 Last Admin: 01/29/20 04:21 Dose: Not Given Documented by: Albuterol/Ipratropium (Duoneb 3.0-0.5 Mg/3 Ml) 3 ml NEB ONETIME ONE Stop: 01/29/20 02:31 Last Admin: 01/29/20 02:36 Dose: 3 ml Documented by: Albuterol/Ipratropium (Duoneb 3.0-0.5 Mg/3 Ml) 3 ml NEB ONETIME ONE Stop: 01/29/20 04:26 Last Admin: 09/27/20 04:29 Dose: 3 ml Documented by: Methylprednisolone Sodium Succinate (Solu-Medrol) 125 mg IVPUSH Q8H JOHN Last Admin: 01/29/20 07:36 Dose: 125 mg Documented by:
[2020-01-30] MEDS: methylPREDNISolone Sodium Succinate 125 MG/2 ML SDV IVPUSH SCH (09:15)
[2020-01-30] MEDS: Nicotine 21 MG/24 Hr Patch TRDERM SCH (09:31)
[2020-01-30] MEDS: Enoxaparin 40 MG/0.4 ML Syringe SUBCUT SCH (09:31)
--- NOTE | 2020-01-30 10:34 | CR ---
INDICATION: Shortness of breath. CHEST ONE VIEW FRONTAL: Portable AP upright view of the chest 01/29/20 was compared with 01/24/20 and 09/28/18. The heart is felt to be normal in size and shape. Overlying EKG leads are noted. There appears to be some patchy infiltrate at the left lower lung field with slight blunting of the costophrenic angle on the left. Findings may be on the basis of pneumonia and pleuritis, but should be correlated clinically. There may also be some localized pleural thickening at the right lung base with costophrenic angle not clearly visualized raising question of minimal pneumonia and pleuritis there also. When clinically possible, PA and lateral views of the chest may be helpful for further evaluation. MTDD
--- NOTE | 2020-01-30 10:41 | CR ---
INDICATION: Short of breath. CHEST TWO VIEWS: PA and lateral views of the chest were obtained 01/30/20 and compared with 01/24/20 and 01/29/20. Somewhat flattened diaphragm leaves with prominent AP diameter and hyperaeration suggest COPD , but should be correlated clinically. A definite active infiltrate or effusion was not identified. There is some linear density in the lower lung field on the left which may represent atelectasis and appears new when compared with the previous study. The heart remains normal in size and shape. Mediastinum was unremarkable. Minimal degenerative changes noted in the upper middle thoracic spine. IMPRESSION: 1. Possible linear atelectasis lower lung field on the left with infiltrates felt to be present on the previous study not definitely visualized at this time - no other acute process suggested. 2. Probable obstructive airway disease - correlate clinically. Findings may be on the basis of an exacerbation of COPD. MTDD
[2020-01-30 14:08] VITALS: BP 136/78; PULSE 89
== END 2020-01-30 11:10 | disposition home or self-care (01) | DRG 192 ==
LOC: FB.ED 02:26 → FB.MS 06:59
PROVIDERS: ADMIT Family Medicine; ATTEND Family Medicine
DX: J44.1 Chronic obstructive pulmonary disease with (acute) exacerbation (principal); J44.0 Chronic obstructive pulmonary disease with (acute) lower respiratory infection; J20.9 Acute bronchitis, unspecified; D47.3 Essential (hemorrhagic) thrombocythemia; H54.7 Unspecified visual loss; K21.9 Gastro-esophageal reflux disease without esophagitis; F41.9 Anxiety disorder, unspecified; H26.9 Unspecified cataract; Z72.0 Tobacco use; F17.210 Nicotine dependence, cigarettes, uncomplicated; Z20.828 Contact with and (suspected) exposure to other viral communicable diseases; Z99.81 Dependence on supplemental oxygen; F32.9 Major depressive disorder, single episode, unspecified; Z79.52 Long term (current) use of systemic steroids; Z79.899 Other long term (current) drug therapy; Z88.1 Allergy status to other antibiotic agents; Z88.8 Allergy status to other drugs, medicaments and biological substances; Z87.01 Personal history of pneumonia (recurrent); Z87.440 Personal history of urinary (tract) infections
CPT/HCPCS: 36415; 71045; 71046; 80048; 80053; 85025; 85379; 94640; 99285-25; A9270-GY; J1650; J1956; J2930; J7620-GY; U0002

== ENCOUNTER 2021-09-30 23:15 | Emergency (ER) | payer MEDICAID, OTHER ==
[2021-09-30] MEDS ORDERED: predniSONE 20 MG Tab PO ONE (23:16)
[2021-09-30 23:27] VITALS: BP 124/73; PULSE 100
[2021-09-30] MEDS: Albuterol/Ipratropium 3.0-0.5 MG/3 ML Neb Soln NEB ONE (23:31)
[2021-09-30] MEDS: Levofloxacin 500 MG Tab PO ONE (23:56)
[2021-10-01 00:30] LABS: CORONAVIRUS COVID-19 NAA NEGATIVE (NEGATIVE)
== END 2021-10-01 00:05 | disposition home or self-care (01) ==
LOC: FB.ED 23:15
DX: R05.9 Cough, unspecified (principal); F17.200 Nicotine dependence, unspecified, uncomplicated; J44.9 Chronic obstructive pulmonary disease, unspecified; Z88.1 Allergy status to other antibiotic agents; Z88.8 Allergy status to other drugs, medicaments and biological substances; Z20.822 Contact with and (suspected) exposure to COVID-19
CPT/HCPCS: 0241U; 36415; 71046; 80053; 83880; 84484; 85025; 93005; 93010; 99283; 99284-25; A9270-GY; J7512; J7620